=== PATIENT | female | born 1940 | race Two or more races ===

== ENCOUNTER 2017-03-11 09:06 | Day surgery (SDC) | payer MEDICARE, MEDICAID ==
[2017-03-11] VITALS (7 sets, daily range): BP systolic 121–143; BP diastolic 60–71
[~2017-03-11] VITALS: Ht 167.6 cm; Wt 63.5 kg
[~2017-03-11 09:06] MED LIST: ALBUTEROL SULF8.5 GM INH; AMBIEN10 MG PO; ATENOLOL50 MG PO; AZITHROMYCIN250 MG ORAL; CRESTOR10 M1 GT; GABAPENTIN300 MG PO; PAROXETINE HCL10 MG PO; PREVACID30 MG PO; VIT D2 PO
--- NOTE | 2017-03-11 09:13 | Anethesia Preoperative Eval ---
Anesthesia Pre-op PMH/ROS General Date of Evaluation: Mar 11, 2017 Time of Evaluation: 11:07 Anesthesiologist: John ASA Score: ASA 2 Mallampati Score Class I : Soft palate, uvula, fauces, pillars visible Class II: Soft palate, uvula, fauces visible Class III: Soft palate, base of uvula visible Class IV: Only hard plate visible Mallampati Classification: Class II Surgeon: Skyler Diagnosis: history of colon ca Surgical Procedure: colonoscopy Anesthesia History: none Family History: no anesthesia problems Allergies: Coded Allergies: No Known Allergies (Unverified , 01/19/12) Medications: see eMAR Past Medical History Cardiovascular: Reports: HTN, CAD Pulmonary: Reports: other - bronchitis Gastrointestinal/Genitourinary: Reports: other - colorectal cancer- colon sx Neurologic/Psychiatric: Reports: depression/anxiety HEENT: Denies: cataract (L), cataract (R), glaucoma, [place]AND (L), [place]AND (R), other Musculoskeletal/Integumentary: Reports: OA PSxH Narrative: colon sx due to colorectal CA - 2008 Anesthesia Pre-op Phys. Exam Physician Exam Constitutional: NAD Neurologic: CN 2-12 intact Cardiovascular: RRR Respiratory: CTA Gastrointestinal: S/NT/ND Airway Exam Mallampati Score: Class II MO: full ROM: full Teeth: missing Dentures: upper, lower Anesthesia Pre-op A/P Labs chart reviewed Studies Pre-op Studies: EKG - NSR 64 BPM Risk Assessment & Plan Assessment: A&Ox3 Plan: MAC Status Change Before Surgery: No Pre-Antibiotics Given Within 1 Hr of Incision: No - none per surgeon Itzel Lopez CRNA Mar 11, 2017 09:13
--- NOTE | 2017-03-11 09:26 | Pre-Procedure Note/Attestation ---
Pre-Procedure Note/Attestation Complete Prior to Procedure Planned Procedure: not applicable Procedure Narrative: colonoscopy Indications for Procedure Pre-Operative Diagnosis: h/o colon cancer Attestation I attest that I discussed the nature of the procedure; its benefits; risks and complications; and alternatives (and the risks and benefits of such alternatives ), prior to the procedure, with the patient (or the patient's legal agency service representative). I attest that, if there was a reasonable possibility of needing a blood transfusion, the patient (or the patient's legal agency service representative) was given the [facility] standardized written summary, pursuant to the [place] Blood Safety Act ([place] Health and Safety Code # 1645, as amended). I attest that I re-evaluated the patient just prior to the surgery and that there has been no change in the patient's H&P, except as documented below: GENI CRAIG Mar 11, 2017 09:26
--- NOTE | 2017-03-11 09:27 | Short Stay Surgery H&P ---
History of Present Illness History of Present Illness Chief Complaint h/o colon cancer HPI Kallie Turner is a 76 year old female who was admitted on for Hx Of Colon Cancer Patient History Allergies: Coded Allergies: No Known Allergies (Unverified , 01/19/12) PAST MEDICAL HISTORY: Past Surgeries: Social History: Medication History Scheduled Atenolol* (Tenormin*), 100 MG PO DAILY, (Reported) Azithromycin* (Zithromax*), 250 MG ORAL DAILY Gabapentin* (Gabapentin*), 300 MG PO BID, (Reported) Lansoprazole* (Prevacid*), 30 MG PO DAILY, (Reported) Rosuvastatin Calcium (Crestor), 10 MG GT DAILY, (Reported) Zolpidem Tartrate* (Ambien*), 10 MG PO HS, (Reported) [Vit D2], 1.25 MG PO QWEEK, (Reported) Scheduled PRN Albuterol Sulfate* (Albuterol Sulfate Mdi*), 2 PUFF INH Q4H PRN for For Cough Review of Systems Cardiovascular: Reports: no symptoms Respiratory: Reports: no symptoms Skeletal: Reports: no symptoms Gastrointestinal: Reports: no symptoms Genitourinary: Reports: no symptoms Neurologic: Reports: no symptoms Endocrine: Reports: no symptoms Hematologic: Reports: no symptoms Physical Exam Skin: normal HENT: normal Heart: normal Lungs: normal Abdomen: normal Extremities: normal Genitourinary: normal Plan Plan of Care colonoscopy Final Diagnosis: Attestation Are the patient's medical conditions optimized for surgery? Attestation Response: yes GENI CRAIG Mar 11, 2017 09:27
[2017-03-11] MEDS ORDERED: Lidocaine 1% MPF 10mg/ml 5ml ONE (11:00)
[2017-03-11] MEDS ORDERED: Midazolam 2mg/2ml Inj ONE (11:00)
[2017-03-11] MEDS ORDERED: Propofol 200mg/20ml IV ONE (11:00)
--- NOTE | 2017-03-11 11:25 | Endoscopy Procedure Note ---
Endoscopy Procedure Note Indication for Procedure: h/o colon cancer Procedures Performed: colonoscopy Operative Findings/Diagnosis: hemorrhoids Specimen: none Pt Tolerated Procedure Well: Yes Estimated Blood Loss: none Anesthesiologist: latasha Anesthesia: MAC Implant(s) used?: No 50 yrs or older w/o bx or poly: Yes 10yrs. F/U not recommended: Yes If not recommended, why?: Above average risk 10 yrs. F/U needed: Yes 18 years or older w/prev. colo: Yes <3yrs. since last colonoscopy: No GENI CRAIG Mar 11, 2017 11:24
--- NOTE | 2017-03-11 11:26 | Immediate Post-Op Evaluation ---
Immediate Post-Op Evalulation Immediate Post-Op Evalulation Procedure: colonoscopy Date of Evaluation: Mar 11, 2017 Time of Evaluation: 11:33 IV Fluids: NSS 500 ml Blood Products: 0 Estimated Blood Loss: 0 Urinary Output: 0 Blood Pressure Systolic: 127 Blood Pressure Diastolic: 67 Pulse Rate: 61 Respiratory Rate: 18 O2 Sat by Pulse Oximetry: 100 Temperature (Fahrenheit): 98 Pain Score (1-10): 0 Nausea: No Vomiting: No Complications none Patient Status: awake, reacts, patent Hydration Status: adequate Given Within 1 Hr of Incision: Itzel Diallo CRNA Mar 11, 2017 11:26
--- NOTE | 2017-03-11 11:53 | 48 Hour Post Anesthesia Eval ---
Post Anesthesia Evaluation Procedure: colonoscopy Date of Evaluation: Mar 11, 2017 Time of Evaluation: 11:51 Blood Pressure Systolic: 130 0: 70 Pulse Rate: 66 Respiratory Rate: 16 Temperature (Fahrenheit): 97.8 O2 Sat by Pulse Oximetry: 96 Airway: patent Nausea: No Vomiting: No Pain Intensity: 0 Hydration Status: adequate Mental Status/LOC: patient returned to baseline Post-Anesthesia Complications: none Follow-up care needed: patient intructions given Itzel Lopez CRNA Mar 11, 2017 11:53
--- NOTE | 2017-03-13 12:54 | Procedure Note ---
DATE OF PROCEDURE: 03/11/2017 SURGEON: Usama Holland M.D. PROCEDURE: Colonoscopy. ANESTHESIA: Per John ALVARADO. INSTRUMENT: Olympus adult flexible colonoscope. INDICATION: History of colon cancer. Last colonoscopy 3 to 4 years ago. REASON FOR PROCEDURE: The procedure, risks, benefits, and possible consequences, including hemorrhage, aspiration, perforation and infection, and alternative treatments, were explained to the patient/legal guardian by Dr. Usama Holland and the patient/legal guardian understood and accepted these risks. DESCRIPTION OF PROCEDURE: After informed consent was obtained and the patient was adequately sedated, first rectal exam was performed, which was positive for internal hemorrhoids. Then, the scope was advanced from the rectum into the cecum and then subsequently into the terminal ileum. Quality of prep was good. There was some solid stool throughout that we washed and clean out as best as we could. The patient had normal colonoscopy examination without any obvious polyp, mass, or any other pathology seen. Anastomosis seems to be few centimeters above from the rectum. Under retroflexion of rectum, the patient had evidence of few medium-sized nonbleeding internal hemorrhoids. SUMMARY OF FINDINGS: Normal colonoscopy examination except for internal and external hemorrhoids. RECOMMENDATIONS: Repeat colonoscopy in 5 years. Usama Holland M.D. DR: MICA JOB#: [id number] CC:
--- NOTE | 2017-03-15 17:02 | Cardiology Report ---
APPROVED REPORT EKG Measurement Heart [id number] Normal sinus rhythm Normal ECG
== END 2017-03-11 12:40 | disposition home or self-care (01) ==
LOC: GAS 09:06
DX: K64.8 Other hemorrhoids (principal); K64.4 Residual hemorrhoidal skin tags; Z85.038 Personal history of other malignant neoplasm of large intestine; I10 Essential (primary) hypertension; I25.10 Atherosclerotic heart disease of native coronary artery without angina pectoris; F32.9 Major depressive disorder, single episode, unspecified; F41.9 Anxiety disorder, unspecified; M19.90 Unspecified osteoarthritis, unspecified site
CPT/HCPCS: 45378; 93005; J2250; J2704; 94003; 94150

== ENCOUNTER 2019-03-17 14:16 | Outpatient (RCR) | payer MEDICARE, MEDICAID ==
[~2019-03-17 14:16] MED LIST changes: +ONDANSETRON ODT4 MG BC
== END 2019-04-09 | disposition home or self-care (01) ==
LOC: WCC 14:16
DX: E11.621 Type 2 diabetes mellitus with foot ulcer (principal); L97.524 Non-pressure chronic ulcer of other part of left foot with necrosis of bone; I11.9 Hypertensive heart disease without heart failure; E78.00 Pure hypercholesterolemia, unspecified; Z79.84 Long term (current) use of oral hypoglycemic drugs; Z79.82 Long term (current) use of aspirin
CPT/HCPCS: 82962; G0277; G0463

== ENCOUNTER 2019-03-17 15:28 | Outpatient (CLI) | payer MEDICARE, MEDICAID ==
[2019-03-17 16:26] LABS: ANION GAP 11 mmol/L (5-15); BLOOD UREA NITROGEN 31 mg/dL (7-18); CALCIUM 10.2 MG/DL (8.5-10.1); CARBON DIOXIDE 25 MMOL/L (21-32); CHLORIDE 101 MMOL/L (98-107); CREATININE 1.3 MG/DL (0.55-1.30); POTASSIUM 4.7 MMOL/L (3.5-5.1); SODIUM 137 MMOL/L (136-145)
== END 2019-03-17 17:28 | disposition home or self-care (01) ==
LOC: LAB 15:28
DX: E16.2 Hypoglycemia, unspecified (principal)
CPT/HCPCS: 80048; 83036

== ENCOUNTER 2019-04-11 10:43 | Outpatient (RCR) | payer MEDICARE, MEDICAID | END 2019-05-10 | disposition home or self-care (01) | LOC: WCC 10:43 | DX: E11.621 Type 2 diabetes mellitus with foot ulcer (principal); L97.524 Non-pressure chronic ulcer of other part of left foot with necrosis of bone; I11.9 Hypertensive heart disease without heart failure; E78.00 Pure hypercholesterolemia, unspecified; Z85.038 Personal history of other malignant neoplasm of large intestine | CPT/HCPCS: 82962; G0277; G0463 ==

== ENCOUNTER 2019-05-11 09:02 | Outpatient (RCR) | payer MEDICARE, MEDICAID | END 2019-06-09 | disposition home or self-care (01) | LOC: WCC 09:02 | DX: E11.621 Type 2 diabetes mellitus with foot ulcer (principal); L97.524 Non-pressure chronic ulcer of other part of left foot with necrosis of bone | CPT/HCPCS: G0277 ×2 ==

== ENCOUNTER 2019-06-29 11:27 | Outpatient (RCR) | payer MEDICARE, MEDICAID | END 2019-07-10 | disposition home or self-care (01) | LOC: WCC 11:27 | DX: T86.828 Other complications of skin graft (allograft) (autograft) (principal); E11.621 Type 2 diabetes mellitus with foot ulcer; Z89.412 Acquired absence of left great toe; Z89.422 Acquired absence of other left toe(s); I11.9 Hypertensive heart disease without heart failure; E78.00 Pure hypercholesterolemia, unspecified; T81.30XA Disruption of wound, unspecified, initial encounter; X58.XXXA Exposure to other specified factors, initial encounter; Y92.9 Unspecified place or not applicable | CPT/HCPCS: 82962; G0277; G0463 ==

== ENCOUNTER 2019-07-11 08:04 | Outpatient (RCR) | payer MEDICARE, MEDICAID | END 2019-08-09 | disposition home or self-care (01) | LOC: WCC 08:04 | DX: T86.828 Other complications of skin graft (allograft) (autograft) (principal); E11.621 Type 2 diabetes mellitus with foot ulcer; E78.00 Pure hypercholesterolemia, unspecified; I11.9 Hypertensive heart disease without heart failure; I25.10 Atherosclerotic heart disease of native coronary artery without angina pectoris; I73.9 Peripheral vascular disease, unspecified; Z89.412 Acquired absence of left great toe; Z79.84 Long term (current) use of oral hypoglycemic drugs; Z79.899 Other long term (current) drug therapy | CPT/HCPCS: 82962; G0277 ==

== ENCOUNTER 2019-08-10 07:44 | Outpatient (RCR) | payer SELFPAY | END 2019-09-09 | disposition home or self-care (01) | LOC: WCC 07:44 | DX: T86.828 Other complications of skin graft (allograft) (autograft) (principal); E11.621 Type 2 diabetes mellitus with foot ulcer; E78.00 Pure hypercholesterolemia, unspecified; I10 Essential (primary) hypertension; I11.9 Hypertensive heart disease without heart failure; Z89.422 Acquired absence of other left toe(s); Z79.899 Other long term (current) drug therapy | CPT/HCPCS: G0277 ×8 ==

== ENCOUNTER 2019-12-30 16:22 | Inpatient (IN) | payer MEDICARE, MEDICAID ==
[~2019-12-30] VITALS: Ht 157.5 cm; Wt 56.7 kg
[2019-12-30] MEDS ORDERED: ceFAZolin 2gm/50ml Premix 50 ML IV SCH (16:45)
[2019-12-30 16:50] VITALS: BP 104/65
--- NOTE | 2019-12-30 17:00 | NUR ---
ED Nurse Note: Pt ambulated to ED accompanied by son d/t wound infection on the amputated L foot. Pt is AOx4, calm and cooperative to care. Pt's VSS, on RA, afebrile on triage. Per son, since the pt got her toes amputated, pt's foot has already been infected going on [address] don bed and gown; son at bedside.
[2019-12-30 17:52] LABS: BASOPHILS % (AUTO) 1.1 % (0.0-2.0); EOSINOPHILS % (AUTO) 2.3 % (0.0-3.0); HEMATOCRIT 34.7 % (37.0-47.0); HEMOGLOBIN 11.4 G/DL (12.0-16.0); MEAN CORPUSCULAR VOLUME 87 FL (80-99); MONOCYTES % (AUTO) 7.9 % (1.0-10.0); NEUTROPHILS % (AUTO) 58.7 % (45.0-75.0); PLATELET COUNT 159 K/UL (150-450); RED BLOOD COUNT 4.01 M/UL (4.20-5.40); RED CELL DISTRIBUTION WIDTH 17.1 % (11.6-14.8); WHITE BLOOD COUNT 7.2 K/UL (4.8-10.8)
--- NOTE | 2019-12-30 18:00 | Diagnostic Imaging Report ---
EXAM: XR Left Foot Complete, 3 or More Views CLINICAL HISTORY: PAIN TECHNIQUE: Frontal, lateral and oblique views of the left foot. COMPARISON: No relevant prior studies available. FINDINGS: Bones/joints: Distal first metatarsal amputation at the level of the head. Second digit amputation. Plantar and Achilles calcaneal enthesophytes. No acute fracture. No dislocation. Soft tissues: Extensive circumferential midfoot and forefoot soft tissue swelling. This could represent cellulitis or edema. No radiopaque foreign body. Other findings: No acute abnormality definitively identified to account for patient presentation. IMPRESSION: 1. Distal first metatarsal amputation at the level of the head. Second digit amputation. 2. No acute abnormality definitively identified to account for patient presentation. 3. Plantar and Achilles calcaneal enthesophytes. 4. Extensive circumferential midfoot and forefoot soft tissue swelling. This could represent cellulitis or edema.
--- NOTE | 2019-12-30 18:01 | Diagnostic Imaging Report ---
EXAM: XR Chest, 1 View CLINICAL HISTORY: PAIN TECHNIQUE: Frontal view of the chest. COMPARISON: 03/26/12 FINDINGS: Lungs: Low lung volumes with bronchovascular crowding. No consolidation, pleural effusion, or pneumothorax. Pleural space: See above. Heart: Unremarkable. No cardiomegaly. Mediastinum: Unremarkable. Bones/joints: No acute abnormality IMPRESSION: 1. Low lung volumes with bronchovascular crowding. 2. Otherwise no acute cardiopulmonary disease. 3. If there is continued concern, recommend frontal and lateral chest radiographs or CT.
[2019-12-30 18:05] LABS: BILIRUBIN, URINE NEGATIVE (NEGATIVE); COLOR,URINE PALE YELLOW; GLUCOSE, URINE (UA) NEGATIVE (NEGATIVE); KETONES,URINE NEGATIVE (NEGATIVE); LEUKOCYTE ESTERASE ,URINE 2+ (NEGATIVE); NITRITE,URINE NEGATIVE (NEGATIVE); PH,URINE 5 (4.5-8.0); PROTEIN,URINE NEGATIVE (NEGATIVE); UROBILINOGEN,URINE NORMAL MG/DL (0.0-1.0)
[2019-12-30 18:22] LABS: APPEARANCE,URINE SLIGHTLY CLOUDY
[2019-12-30 18:32] LABS: ALANINE AMINOTRANSFERASE 16 U/L (12-78); ALBUMIN 3.6 G/DL (3.4-5.0); ALKALINE PHOSPHATASE 44 U/L (46-116); ANION GAP 8 mmol/L (5-15); ASPARTATE AMINO TRANSFERASE 24 U/L (15-37); BILIRUBIN,TOTAL 0.3 MG/DL (0.2-1.0); BLOOD UREA NITROGEN 34 mg/dL (7-18); CALCIUM 9.5 MG/DL (8.5-10.1); CARBON DIOXIDE 28 MMOL/L (21-32); CHLORIDE 103 MMOL/L (98-107); CREATINE KINASE 45 U/L (26-308); SODIUM 139 MMOL/L (136-145)
[2019-12-30 18:38] LABS: CREATININE 1.3 MG/DL (0.55-1.30)
--- NOTE | 2019-12-30 19:08 | NUR ---
ED Nurse Note: Hand off given to Kash Epstein RN
--- NOTE | 2019-12-30 19:43 | NUR ---
ED Nurse Note: gave report to Al RN
--- NOTE | 2019-12-30 19:45 | NUR ---
TRANSFER TO FLOOR: Patient transferred to [facility] via gurney as ordered, per dr. Pineda. Report given to Raciel OSBORN. Belongings sent with patient
--- NOTE | 2019-12-30 19:50 | Emergency Room Report ---
History of Present Illness General Chief Complaint: General Complaint Present Illness HPI 79-year-old female with history of diabetes currently on Metformin and status post amputation of left big toe x6 months brought in by son due to worsening pain in surgical site. Patient was told by primary doctor to get cefazolin IV however has not started yet as in-home nurse needs to start giving those next week. Also patient is currently on Keflex p.o. Denies any new injury, is neurovascularly intact, minimal pus is noted at the surgical site. Patient is afebrile. Denies chest pain, shortness of breath, headache and dizziness. Has not taken any other medications for symptom relief. Appears to be stable. (Steve Delacruz) Allergies: Coded Allergies: No Known Allergies (Unverified , 01/19/12) COVID-19 Screening Contact w/high risk pt: No Experienced COVID-19 symptoms?: No COVID-19 Testing performed MARKET ANALYST: No (Steve Delacruz) Patient History Past Medical History: see triage record Past Surgical History: none Pertinent Family History: none Now: No Immunizations: UTD Reviewed Nursing Documentation: PMH: Agreed; PSxH: Agreed (Steve Lopez) Nursing Documentation-PMH Hx Cardiac Problems: Yes Hx Hypertension: Yes Hx Diabetes: Yes Hx Cancer: Yes Hx Gastrointestinal Problems: Yes - COLON CA Hx Neurological Problems: No (Steve Delacruz) Review of Systems All Other Systems: negative except mentioned in HPI (Steve Delacruz) Physical Exam Vital Signs Date Time Temp Pulse Resp B/P (MAP) Pulse Ox O2 Delivery O2 Flow Rate FiO2 12/30/19 16:30 98.1 85 16 104/65 (78) 98 Room Air Sp02 EP Interpretation: reviewed, normal General Appearance: no apparent distress, alert, GCS 15, non-toxic Head: normocephalic, atraumatic Eyes: bilateral eye normal inspection, bilateral eye PERRL ENT: hearing grossly normal, normal pharynx, no angioedema, normal voice Neck: full range of motion, supple/symm/no masses Respiratory: chest non-tender, lungs clear, normal breath sounds, speaking full sentences Cardiovascular #1: regular rate, rhythm, no edema Cardiovascular #2: 2+ carotid (R), 2+ carotid (L), 2+ radial (R), 2+ radial (L), 2+ dorsalis pedis (R), 2+ dorsalis pedis (L) Gastrointestinal: normal bowel sounds, non tender, soft, non-distended, no guarding, no rebound Genitourinary: no CVA tenderness Musculoskeletal: back normal, other - Status post amputation left big toe with minimal pus drainage Neurologic: alert, motor strength/tone normal, oriented x3, sensory intact, responsive, speech normal Psychiatric: judgement/insight normal, memory normal, mood/affect normal, no suicidal/homicidal ideation Lymphatic: no adenopathy (Steve Delacruz) Medical Decision Making PA Attestation ALL Diagnosis and treatment plan reviewed and discussed with my supervising physician Dr. Gallego (Steve Delacruz) Diagnostic Impression: Primary Impression: Diabetic foot infection Additional Impression: Infection of amputation site of lower extremity ER Course 79-year-old female with history of diabetes currently on Metformin and status post amputation of left big toe x6 months brought in by son due to worsening pain in surgical site. Patient was told by primary doctor to get cefazolin IV however has not started yet as in-home nurse needs to start giving those next week. Also patient is currently on Keflex p.o. Denies any new injury, is neurovascularly intact, minimal pus is noted at the surgical site. Patient is afebrile. Denies chest pain, shortness of breath, headache and dizziness. Has not taken any other medications for symptom relief. Appears to be stable. Ddx considered but are not limited to : Cellulitis, diabetic foot, superficial infection, abscess Vital signs: are WNL, pt. is afebrile H&PE are most consistent with: Diabetic foot ulcer ORDERS: ER sepsis order set ED INTERVENTIONS: Cefazolin Patient was admitted with diagnosis of infected diabetic foot to Dr. Pineda under supervision of : Lashonda pt stable at time of admission (Steve Delacruz) ER Course I personally examined the above patient and agree with the above assessment and plan. Patient admitted in stable condition. (Anthony Gallego M.D.) EKG Diagnostic Results Rate: normal Rhythm: NSR ST Segments: no acute changes Other Impression No acute ST changes ASA given to the pt in ED: No (Steve Delacruz) Chest X-Ray Diagnostic Results Chest X-Ray Diagnostic Results : Chest X-Ray Ordered: Yes # of Views/Limited/Complete: 1 View Indication: Other EP Interpretation: Yes PA Xray: Interpretation reviewed, by supervising MD, and agrees with findings. Interpretation: no consolidation, no effusion, no pneumothorax Impression: No acute disease Electronically Signed by: Steve Lr PA-C (Steve Delacruz) Other X-Ray Diagnostic Results Other X-Ray Diagnostic Results : X-Ray ordered: left foot # of Views/Limited Vs Complete: 3 View Indication: Pain EP Interpretation: Yes PA Xray: Interpretation reviewed, by supervising MD, and agrees with findings. Interpretation: no dislocation, no soft tissue swelling, no fractures, other - No osteomyelitis Impression: No acute disease Electronically Signed by: Steve Lr PA-C (Steve Delacruz) Last Vital Signs Date Time Temp Pulse Resp B/P (MAP) Pulse Ox O2 Delivery O2 Flow Rate FiO2 12/30/19 16:50 98.1 16 104/65 98 Room Air 12/30/19 16:50 85 (Steve Delacruz) Disposition: ADMITTED INPATIENT Condition: Serious Referrals: GENI PRICE (PCP) Steve Delacruz Dec 30, 2019 19:50 Anthony Gallego M.D. Dec 30, 2019 19:51
[2019-12-30] MEDS ORDERED: Vancomycin 1 GM in NS 275 ML IVPB ONE (22:00)
[2019-12-30] MEDS: Acetaminophen 500mg (ES) tab ORAL PRN (23:21)
[2019-12-31] MEDS ORDERED: Piperacillin/Tazobactam 3.375 GM in NS 110 ML IVPB SCH ×2
[2019-12-31 00:40] VITALS: BP 116/59
[2019-12-31 04:00] VITALS: BP 105/55
[2019-12-31] MEDS: Acetaminophen 500mg (ES) tab ORAL PRN ×2 (05:28→21:08)
--- NOTE | 2019-12-31 05:37 | NUR ---
NURSE NOTES: Report received from Kash Epstein RN. Pt. was brought via [employer] @ [facility]. Pt. was transferred to bed and made comfortable. Pt. is awake, alert and oriented x3. Able to make needs known. Denies any pain at this time. Breathing even and unlabored. Body assessment done. With skin intact aside from left foot post amputation of big and second toe x 7 months ago per pt. Oriented with hospital policies and room equipments. Bed placed in lowest position and placed on alarm and locked. Called and verified admission orders with Dr. Pineda, orders taken and carried out. Called family, spoke to piyush Copeland and verified all pt.'s med list. Complained of left foot mild pain, prn meds given and verbalized relief. First dose of Vancomycin, without a/r noted. Slept @ short intervals. Kept warm and comfortable @! all times. Wound treatment and dressing of left foot wound done, kept clean and dry at all times. Able to ambulate to void freely. Will continue with plan of care.
[2019-12-31] MEDS: NovoLOG Insulin Flexpen SUBQ SCH ×4 (06:30→20:32)
[2019-12-31 07:29] LABS: HEMATOCRIT 34.2 % (37.0-47.0); HEMOGLOBIN 10.8 G/DL (12.0-16.0); LYMPHOCYTES % (AUTO) 24.2 % (20.0-45.0); MEAN CORPUSCULAR VOLUME 89 FL (80-99); MONOCYTES % (AUTO) 10.3 % (1.0-10.0); NEUTROPHILS % (AUTO) 62.5 % (45.0-75.0); PLATELET COUNT 124 K/UL (150-450); RED BLOOD COUNT 3.85 M/UL (4.20-5.40); RED CELL DISTRIBUTION WIDTH 16.4 % (11.6-14.8); WHITE BLOOD COUNT 4.1 K/UL (4.8-10.8)
[2019-12-31 08:00] VITALS: BP 109/58
--- NOTE | 2019-12-31 08:00 | NUR ---
NURSE NOTES: Patient alert x4; on room air, no sing of distress and shortness of breath; no sing of chest pain; IV Right For-Arm flushes well; side rails up x2, breaks engaged, bed at lowest position, call light within reach; will keep monitoring.
[2019-12-31 08:02] LABS: CALCIUM 8.9 MG/DL (8.5-10.1); PHOSPHORUS 4.4 MG/DL (2.5-4.9); POTASSIUM 3.7 MMOL/L (3.5-5.1)
[2019-12-31] MEDS: Heparin 5000 units/ml inj SUBQ SCH ×2 (09:00→20:16)
[2019-12-31] MEDS ORDERED: Vitamin D 50,000 units cap ORAL SCH (09:00)
[2019-12-31] MEDS: metFORMIN 500mg tab ORAL SCH ×2 (09:06→17:25)
[2019-12-31] MEDS: Lyrica 50mg cap ORAL SCH ×3 (09:07→17:25)
[2019-12-31] MEDS: PARoxetine HCL 10mg tab ORAL SCH (09:07)
[2019-12-31] MEDS: Piperacillin/Tazobactam 3.375 GM in NS 110 ML IVPB SCH ×2 (09:08→17:26)
[2019-12-31 12:00] VITALS: BP 103/52
--- NOTE | 2019-12-31 13:57 | NUR ---
Imaging Specialist: Patient's blood sugar was 61and Dextrose 50% given; will rechecked blood sugar, 234; will keep monitoring.
--- NOTE | 2019-12-31 14:03 | Infectious Diseases Prog Note ---
Assessment/Plan Assessment/Plan Full consult to follow: A) 1) left foot wound infection at amputation site 2) dm 3) htn P) 1) vancomycin and zosyn 2) f/u on culture left foot 3) surgery evaluation 4) monitor labs 5) thank you Subjective Allergies: Coded Allergies: No Known Allergies (Unverified , 01/19/12) Objective Last 24 Hour Vital Signs Date Time Temp Pulse Resp B/P (MAP) Pulse Ox O2 Delivery O2 Flow Rate FiO2 12/31/19 12:00 97.5 78 18 103/52 (69) 96 12/31/19 09:00 Room Air 12/31/19 08:00 97.5 84 18 109/58 (75) 97 12/31/19 05:58 97.5 12/31/19 04:00 98.1 75 18 105/55 (72) 94 12/31/19 00:40 97.5 82 17 116/59 (78) 97 12/30/19 23:51 97.5 12/30/19 23:28 Room Air 12/30/19 19:45 97.5 72 16 118/71 98 Room Air 12/30/19 16:50 98.1 16 104/65 98 Room Air 12/30/19 16:50 85 16 Room Air 12/30/19 16:30 98.1 85 16 104/65 (78) 98 Room Air Height (Feet): 5 Height (Inches): 2.00 Weight (Pounds): 125 Laboratory Tests Test 12/30/19 17:15 12/30/19 17:25 12/31/19 06:35 12/31/19 11:37 White Blood Count 7.2 K/UL (4.8-10.8) 4.1 K/UL (4.8-10.8) L Red Blood Count 4.01 M/UL (4.20-5.40) L 3.85 M/UL (4.20-5.40) L Hemoglobin 11.4 G/DL (12.0-16.0) L 10.8 G/DL (12.0-16.0) L Hematocrit 34.7 % (37.0-47.0) L 34.2 % (37.0-47.0) L Mean Corpuscular Volume 87 FL (80-99) 89 FL (80-99) Mean Corpuscular Hemoglobin 28.4 PG (27.0-31.0) 28.2 PG (27.0-31.0) Mean Corpuscular Hemoglobin Concent 32.7 G/DL (32.0-36.0) 31.7 G/DL (32.0-36.0) L Red Cell Distribution Width 17.1 % (11.6-14.8) H 16.4 % (11.6-14.8) H Platelet Count 159 K/UL (150-450) 124 K/UL (150-450) L Mean Platelet Volume 8.3 FL (6.5-10.1) 7.5 FL (6.5-10.1) Neutrophils (%) (Auto) 58.7 % (45.0-75.0) 62.5 % (45.0-75.0) Lymphocytes (%) (Auto) 30.0 % (20.0-45.0) 24.2 % (20.0-45.0) Monocytes (%) (Auto) 7.9 % (1.0-10.0) 10.3 % (1.0-10.0) H Eosinophils (%) (Auto) 2.3 % (0.0-3.0) 2.0 % (0.0-3.0) Basophils (%) (Auto) 1.1 % (0.0-2.0) 1.0 % (0.0-2.0) Erythrocyte Sedimentation Rate 40 MM/HR (0-30) H Prothrombin Time 11.2 SEC (9.30-11.50) Prothromb Time International Ratio 1.0 (0.9-1.1) Activated Partial Thromboplast Time 25 SEC (23-33) Sodium Level 139 MMOL/L (136-145) 140 MMOL/L (136-145) Potassium Level 4.0 MMOL/L (3.5-5.1) 3.7 MMOL/L (3.5-5.1) Chloride Level 103 MMOL/L (98-107) 107 MMOL/L (98-107) Carbon Dioxide Level 28 MMOL/L (21-32) 25 MMOL/L (21-32) Anion Gap 8 mmol/L (5-15) 8 mmol/L (5-15) Blood Urea Nitrogen 34 mg/dL (7-18) H 26 mg/dL (7-18) H Creatinine 1.3 MG/DL (0.55-1.30) 1.0 MG/DL (0.55-1.30) Estimat Glomerular Filtration Rate 39.7 mL/min (>60) 53.8 mL/min (>60) Glucose Level 92 MG/DL (74-106) 81 MG/DL (74-106) Lactic Acid Level 1.70 mmol/L (0.4-2.0) Calcium Level 9.5 MG/DL (8.5-10.1) 8.9 MG/DL (8.5-10.1) Total Bilirubin 0.3 MG/DL (0.2-1.0) Aspartate Amino Transf (AST/SGOT) 24 U/L (15-37) Alanine Aminotransferase (ALT/SGPT) 16 U/L (12-78) Alkaline Phosphatase 44 U/L (46-116) L Total Creatine Kinase 45 U/L (26-308) Troponin I 0.000 ng/mL (0.000-0.056) C-Reactive Protein, Quantitative < 0.4 mg/dL (0.00-0.90) Pro-B-Type Natriuretic Peptide 126 pg/mL (0-125) H Total Protein 7.1 G/DL (6.4-8.2) Albumin 3.6 G/DL (3.4-5.0) Globulin 3.5 g/dL Albumin/Globulin Ratio 1.0 (1.0-2.7) Urine Color Pale yellow Urine Appearance Slightly cloudy Urine pH 5 (4.5-8.0) Urine Specific [place] 1.025 (1.005-1.035) Urine Protein Negative (NEGATIVE) Urine Glucose (UA) Negative (NEGATIVE) Urine Ketones Negative (NEGATIVE) Urine Blood Negative (NEGATIVE) Urine Nitrite Negative (NEGATIVE) Urine Bilirubin Negative (NEGATIVE) Urine Urobilinogen Normal MG/DL (0.0-1.0) Urine Leukocyte Esterase 2+ (NEGATIVE) H Urine RBC 0-2 /HPF (0 - 2) Urine WBC 2-4 /HPF (0 - 2) Urine Squamous Epithelial Cells Few /LPF (NONE/OCC) Urine Bacteria Few /HPF (NONE) Hemoglobin A1c 5.3 % (4.3-6.0) Phosphorus Level 4.4 MG/DL (2.5-4.9) Magnesium Level 1.9 MG/DL (1.8-2.4) POC Whole Blood Glucose 61 MG/DL (74-106) L Test 12/31/19 12:33 POC Whole Blood Glucose 59 MG/DL (74-106) L Current Medications Medications (Trade) Dose Ordered Sig/Dav Route PRN Reason Start Time Stop Time Status Last Admin Dose Admin Acetaminophen (Tylenol) 650 mg Q6H PRN ORAL Mild Pain (Pain Scale 1-3) 12/30/19 22:45 01/29/20 22:44 12/31/19 05:28 Atorvastatin Calcium (Lipitor) 10 mg BEDTIME ORAL 12/31/19 21:00 03/30/20 20:59 Dextrose (Dextrose 50%) 25 ml Q30M PRN IV Hypoglycemia 12/30/19 22:45 03/29/20 22:44 Dextrose (Dextrose 50%) 50 ml Q30M PRN IV Hypoglycemia 12/30/19 22:45 03/29/20 22:44 12/31/19 12:58 Ergocalciferol (Drisdol) 50,000 intlu ONCE A WEEK ORAL 12/31/19 09:00 01/30/20 08:59 12/31/19 09:19 Folic Acid (Folate) 1 mg DAILY ORAL 12/31/19 09:00 01/30/20 08:59 12/31/19 09:07 Heparin Sodium (Porcine) (Heparin 5000 units/ml) 5,000 units EVERY 12 HOURS SUBQ 12/31/19 09:00 02/14/20 08:59 Insulin Aspart (NovoLOG) BEFORE MEALS AND HS SUBQ 12/31/19 06:30 03/30/20 06:29 Metformin HCl (Glucophage) 500 mg BID ORAL 12/31/19 09:00 01/30/20 08:59 12/31/19 09:06 Paroxetine HCl (Paxil) 10 mg DAILY ORAL 12/31/19 09:00 01/30/20 08:59 12/31/19 09:07 Piperacillin Sod/ Tazobactam Sod 3.375 gm/Sodium Chloride 110 ml @ 27.5 mls/hr Q8H IVPB 12/31/19 10:00 01/07/20 09:59 12/31/19 09:08 Pregabalin (Lyrica) 100 mg THREE TIMES A DAY ORAL 12/31/19 09:00 01/30/20 08:59 12/31/19 13:50 Vancomycin HCl (Vanco pharmacy to dose) 1 ea DAILY PRN MISC Per rx protocol 12/30/19 22:00 01/29/20 21:59 Vancomycin HCl 1 gm/Dextrose 275 ml @ 183.708 mls/hr Q24H IVPB 12/31/19 22:00 01/05/20 21:59 Debbie Abel MD Dec 31, 2019 14:03
[2019-12-31 16:00] VITALS: BP 120/50
--- NOTE | 2019-12-31 18:24 | History & Physical ---
History of Present Illness General Reason for Hospitalization: General Complaint Present Illness HPI 79-year-old female with history of diabetes currently on Metformin and status post amputation of left big toe x6 months brought in by son due to worsening pain in surgical site. Patient was told by primary doctor to get cefazolin IV however has not started yet as in-home nurse needs to start giving those next week. Also patient is currently on Keflex p.o. Denies any new injury, is neurovascularly intact, minimal pus is noted at the surgical site. Patient is afebrile. Denies chest pain, shortness of breath, headache and dizziness. Has not taken any other medications for symptom relief. Appears to be stable. Allergies: Coded Allergies: No Known Allergies (Unverified , 01/19/12) COVID-19 Screening Contact w/high risk pt: No Experienced COVID-19 symptoms?: No Medication History Scheduled Atenolol* (Tenormin*), 100 MG PO DAILY, (Reported) Rosuvastatin Calcium (Crestor), 10 MG GT DAILY, (Reported) Zolpidem Tartrate* (Ambien*), 10 MG PO HS, (Reported) [Vit D2], 1.25 MG PO QWEEK, (Reported) Scheduled PRN Albuterol Sulfate* (Albuterol Sulfate Mdi*), 2 PUFF INH Q4H PRN for For Cough Ondansetron Odt* (Zofran Odt*), 4 MG BC EVERY 6 HOURS PRN for Nausea & Vomiting Patient History Healthcare decision maker Resuscitation status Advanced Directive on File Review of Systems Review of Symptoms General ROS: no weight loss or fever Psychological ROS: no depression or mood changes, no memory loss Ophthalmic ROS: no visual changes or eye irritation ENT ROS: no nasal congestion, hearing loss, dizziness Allergy and Immunology ROS: no allergic symptoms or urticaria Hematological and Lymphatic ROS: no swollen glands, unusual bleeding or bruising Endocrine ROS: no polyuria, polydipsia, weight changes, temperature intolerance Respiratory ROS: no cough, shortness of breath, or wheezing Cardiovascular ROS: no chest pain or dyspnea on exertion Gastrointestinal ROS: denies abdominal pain, bright red blood in stool. Musculoskeletal ROS: no myalgias or arthralgias Neurological ROS: no TIA or stroke symptoms Dermatological ROS: no new or changing skin lesions, rashes or pruritis Physical Exam Physical Exam General appearance: alert, cooperative, no distress, appears stated age Head: Normocephalic, without obvious abnormality, atraumatic Eyes: conjunctivae/corneas clear. PERRL, EOM's intact. Fundi benign Throat: Lips, mucosa, and tongue normal. Teeth and gums normal Neck: supple, symmetrical, trachea midline, no adenopathy, thyroid: not enlarged, symmetric, no tenderness/mass/nodules, no carotid bruit and no JVD Lungs: clear to auscultation bilaterally Heart: regular rate and rhythm, S1, S2 normal, no murmur, click, rub or gallop Abdomen: soft, non-tender. Bowel sounds normal. No masses, no organomegaly Extremities: extremities normal, atraumatic, no cyanosis or edema Pulses: 2+ and symmetric Skin: Skin color, texture, turgor normal. No rashes or lesions Neurologic: Grossly normal Last 24 Hour Vital Signs Date Time Temp Pulse Resp B/P (MAP) Pulse Ox O2 Delivery O2 Flow Rate FiO2 12/31/19 16:00 97.8 73 18 120/50 (73) 96 12/31/19 12:00 97.5 78 18 103/52 (69) 96 12/31/19 09:00 Room Air 12/31/19 08:00 97.5 84 18 109/58 (75) 97 12/31/19 05:58 97.5 12/31/19 04:00 98.1 75 18 105/55 (72) 94 12/31/19 00:40 97.5 82 17 116/59 (78) 97 12/30/19 23:51 97.5 12/30/19 23:28 Room Air 12/30/19 19:45 97.5 72 16 118/71 98 Room Air Intake and Output 12/30/19 12/31/19 19:00 07:00 Intake Total 900 ml Balance 900 ml Intake Oral 900 ml # Voids 4 Laboratory Tests Test 12/31/19 06:35 12/31/19 11:37 12/31/19 12:33 White Blood Count 4.1 K/UL (4.8-10.8) L Red Blood Count 3.85 M/UL (4.20-5.40) L Hemoglobin 10.8 G/DL (12.0-16.0) L Hematocrit 34.2 % (37.0-47.0) L Mean Corpuscular Volume 89 FL (80-99) Mean Corpuscular Hemoglobin 28.2 PG (27.0-31.0) Mean Corpuscular Hemoglobin Concent 31.7 G/DL (32.0-36.0) L Red Cell Distribution Width 16.4 % (11.6-14.8) H Platelet Count 124 K/UL (150-450) L Mean Platelet Volume 7.5 FL (6.5-10.1) Neutrophils (%) (Auto) 62.5 % (45.0-75.0) Lymphocytes (%) (Auto) 24.2 % (20.0-45.0) Monocytes (%) (Auto) 10.3 % (1.0-10.0) H Eosinophils (%) (Auto) 2.0 % (0.0-3.0) Basophils (%) (Auto) 1.0 % (0.0-2.0) Sodium Level 140 MMOL/L (136-145) Potassium Level 3.7 MMOL/L (3.5-5.1) Chloride Level 107 MMOL/L (98-107) Carbon Dioxide Level 25 MMOL/L (21-32) Anion Gap 8 mmol/L (5-15) Blood Urea Nitrogen 26 mg/dL (7-18) H Creatinine 1.0 MG/DL (0.55-1.30) Estimat Glomerular Filtration Rate 53.8 mL/min (>60) Glucose Level 81 MG/DL (74-106) Hemoglobin A1c 5.3 % (4.3-6.0) Calcium Level 8.9 MG/DL (8.5-10.1) Phosphorus Level 4.4 MG/DL (2.5-4.9) Magnesium Level 1.9 MG/DL (1.8-2.4) POC Whole Blood Glucose 61 MG/DL (74-106) L 59 MG/DL (74-106) L Height (Feet): 5 Height (Inches): 2.00 Weight (Pounds): 125 Medications Current Medications Medications (Trade) Dose Ordered Sig/Dav Route PRN Reason Start Time Stop Time Status Last Admin Dose Admin Acetaminophen (Tylenol) 650 mg Q6H PRN ORAL Mild Pain (Pain Scale 1-3) 12/30/19 22:45 01/29/20 22:44 12/31/19 05:28 Atorvastatin Calcium (Lipitor) 10 mg BEDTIME ORAL 12/31/19 21:00 03/30/20 20:59 Dextrose (Dextrose 50%) 25 ml Q30M PRN IV Hypoglycemia 12/30/19 22:45 03/29/20 22:44 Dextrose (Dextrose 50%) 50 ml Q30M PRN IV Hypoglycemia 12/30/19 22:45 03/29/20 22:44 12/31/19 12:58 Ergocalciferol (Drisdol) 50,000 intlu ONCE A WEEK ORAL 12/31/19 09:00 01/30/20 08:59 12/31/19 09:19 Folic Acid (Folate) 1 mg DAILY ORAL 12/31/19 09:00 01/30/20 08:59 12/31/19 09:07 Heparin Sodium (Porcine) (Heparin 5000 units/ml) 5,000 units EVERY 12 HOURS SUBQ 12/31/19 09:00 02/14/20 08:59 Insulin Aspart (NovoLOG) BEFORE MEALS AND HS SUBQ 12/31/19 06:30 03/30/20 06:29 Metformin HCl (Glucophage) 500 mg BID ORAL 12/31/19 09:00 01/30/20 08:59 12/31/19 17:25 Paroxetine HCl (Paxil) 10 mg DAILY ORAL 12/31/19 09:00 01/30/20 08:59 12/31/19 09:07 Piperacillin Sod/ Tazobactam Sod 3.375 gm/Sodium Chloride 110 ml @ 27.5 mls/hr Q8H IVPB 12/31/19 10:00 01/07/20 09:59 12/31/19 17:26 Pregabalin (Lyrica) 100 mg THREE TIMES A DAY ORAL 12/31/19 09:00 01/30/20 08:59 12/31/19 17:25 Vancomycin HCl (Vanco pharmacy to dose) 1 ea DAILY PRN MISC Per rx protocol 12/30/19 22:00 01/29/20 21:59 Vancomycin HCl 1 gm/Dextrose 275 ml @ 183.708 mls/hr Q24H IVPB 12/31/19 22:00 01/05/20 21:59 Assessment/Plan Diagnosis [place] [facility]: #Diabetic foot infection #DM #HTN #HLD #Depression - admit inpatient - vanco and zosyn - wound care - ID eval - surgery eval - hold metformin - resume statin - ISS - resume paxil time spent 65 min [facility] Hospital declaration Disposition: Once the patient is stable to leave the hospital, I anticipate the patient will likely be discharged to the following environment:home Estimated discharge date: 01/03 I spent 70 minutes on this patient's case, and 35 minutes was dedicated to counseling and/or care coordination. MIPS (Merit-based Incentive Payment System) Applicable CPT: 16671, 51730 CHECK ALL THAT ARE MET: Measure #5 (CHF): All ages. Prescribe YOVANY/ARB upon discharge for patients with left ventricular systolic dysfunction. If not, the reason is clearly documented in the medical chart. Measure #8 (CHF): All ages. Prescribe a beta dione upon discharge for patients with left ventricular systolic dysfunction. If not, the reason is clearly documented in the medical chart. Measure #47 Advance care plan or surrogate decision maker documented in the medical record. Measure #130 The provider has documented, updated, or reviewed the patients current medication list and has documented it in the patients note. Measure #374 (All): Send report to referring provider. Measure #407(Sepsis due to MSSA bacteremia): Age 18+ Patient treated with a beta-lactam antibiotic (Nafcillin, Oxacillin or Cefazolin) as definitive therapy. MEDICAL COMPLEXITY High complexity medical decision making (need 2/3 categories) Problem - need 4 points Acute/new problem with new plan for workup (4 points, 1 max) Acute/new problem without additional workup (3 points, 1 max) Unstable chronic problem actively being managed (2 point each, 2 max) Stable chronic problem actively being managed (1 point each, 2 max) Self-limited/transient process (constipation, muscle ache, etc) (1 point each, 2 max) Data - need 4 points Reviewed labs/imaging studies (1 points, 2 max) Independent review of imaging (EKG, xrays, etc) (2 points, 2 max) Discussed case with consult/other MD/RN (2 points, 2 max) High Risk - qualify if have one of the following: Severe exacerbation of acute problem, acute mental status change, IV narcotics, monitoring drug levels (vancomycin, INR, tacrolimus etc) Kodi Pineda M.D. Dec 31, 2019 18:24
--- NOTE | 2019-12-31 19:38 | NUR ---
HAND-OFF: Report given to IRENA Hudson.
--- NOTE | 2019-12-31 19:40 | NUR ---
NURSE NOTES: Received report & pt from IRENA Ramos. Pt in bathroom, a&ox4, in room air. No s/s of acute distress & no c/o pain at this time. Left foot dressing C/D/I. IV site intact with atb running as ordered. Plan of care discussed.
[2019-12-31 20:31] VITALS: BP 107/50
[2019-12-31] MEDS: Vancomycin 1gm in D5W 275ml IVPB SCH (21:44)
--- NOTE | 2019-12-31 22:06 | Consultation ---
History of Present Illness General Date patient seen: Dec 31, 2019 Time patient seen: 18:50 Chief Complaint: General Complaint Referring physician: Dr Kodi Pineda Reason for Consultation: medical co management Present Illness HPI 79-year-old female with history of diabetes currently on Metformin and status post amputation of left big toe x6 months brought in by son due to worsening pain in surgical site. Patient was told by primary doctor to get cefazolin IV however has not started yet as in-home nurse needs to start giving those next week. Also patient is currently on Keflex p.o. Denies any new injury, is neurovascularly intact, minimal pus is noted at the surgical site. Patient is afebrile. Denies chest pain, shortness of breath, headache and dizziness. Has not taken any other medications for symptom relief. Allergies: Coded Allergies: No Known Allergies (Unverified , 01/19/12) Medication History Scheduled Atenolol* (Tenormin*), 100 MG PO DAILY, (Reported) Rosuvastatin Calcium (Crestor), 10 MG GT DAILY, (Reported) Zolpidem Tartrate* (Ambien*), 10 MG PO HS, (Reported) [Vit D2], 1.25 MG PO QWEEK, (Reported) Scheduled PRN Albuterol Sulfate* (Albuterol Sulfate Mdi*), 2 PUFF INH Q4H PRN for For Cough Ondansetron Odt* (Zofran Odt*), 4 MG BC EVERY 6 HOURS PRN for Nausea & Vomiting Patient History Healthcare decision maker Resuscitation status FULL CODE Advanced Directive on File Past Medical/Surgical History Past Medical/Surgical History: (1) Diabetic foot infection (2) Diabetic foot ulcer associated with diabetes mellitus due to underlying condition (3) Colon polyps (4) Colon cancer (5) Constipation (6) Epistaxis Review of Systems Constitutional: Reports: no symptoms Eye: Reports: no symptoms ENT: Reports: no symptoms Respiratory: Reports: no symptoms Gastrointestinal: Reports: no symptoms Genitourinary: Reports: no symptoms Musculoskeletal: Reports: joint pain, joint swelling Neurological: Reports: no symptoms Endocrine: Reports: no symptoms Hematologic/Lymphatic: Reports: no symptoms Physical Exam General Appearance: no apparent distress HEENT: atraumatic, anicteric Neck: non-tender Respiratory/Chest: lungs clear, normal breath sounds, no respiratory distress, no accessory muscle use Cardiovascular/Chest: normal rate, regular rhythm, no gallop/murmur Abdomen: normal bowel sounds, non tender, soft, no organomegaly, no mass Extremities: non-tender, other - left foot erytma, swelling Skin Exam: warm/dry Neurologic: director erp II-XII grossly normal Last 24 Hour Vital Signs Date Time Temp Pulse Resp B/P (MAP) Pulse Ox O2 Delivery O2 Flow Rate FiO2 12/31/19 20:41 Room Air 12/31/19 20:31 97.0 67 16 107/50 (69) 95 12/31/19 16:00 97.8 73 18 120/50 (73) 96 12/31/19 12:00 97.5 78 18 103/52 (69) 96 12/31/19 09:00 Room Air 12/31/19 08:00 97.5 84 18 109/58 (75) 97 12/31/19 05:58 97.5 12/31/19 04:00 98.1 75 18 105/55 (72) 94 12/31/19 00:40 97.5 82 17 116/59 (78) 97 12/30/19 23:51 97.5 12/30/19 23:28 Room Air Intake and Output 12/30/19 12/31/19 19:00 07:00 Intake Total 900 ml Balance 900 ml Intake Oral 900 ml # Voids 4 Laboratory Tests Test 12/31/19 06:35 12/31/19 11:37 12/31/19 12:33 12/31/19 20:25 White Blood Count 4.1 K/UL (4.8-10.8) L Red Blood Count 3.85 M/UL (4.20-5.40) L Hemoglobin 10.8 G/DL (12.0-16.0) L Hematocrit 34.2 % (37.0-47.0) L Mean Corpuscular Volume 89 FL (80-99) Mean Corpuscular Hemoglobin 28.2 PG (27.0-31.0) Mean Corpuscular Hemoglobin Concent 31.7 G/DL (32.0-36.0) L Red Cell Distribution Width 16.4 % (11.6-14.8) H Platelet Count 124 K/UL (150-450) L Mean Platelet Volume 7.5 FL (6.5-10.1) Neutrophils (%) (Auto) 62.5 % (45.0-75.0) Lymphocytes (%) (Auto) 24.2 % (20.0-45.0) Monocytes (%) (Auto) 10.3 % (1.0-10.0) H Eosinophils (%) (Auto) 2.0 % (0.0-3.0) Basophils (%) (Auto) 1.0 % (0.0-2.0) Sodium Level 140 MMOL/L (136-145) Potassium Level 3.7 MMOL/L (3.5-5.1) Chloride Level 107 MMOL/L (98-107) Carbon Dioxide Level 25 MMOL/L (21-32) Anion Gap 8 mmol/L (5-15) Blood Urea Nitrogen 26 mg/dL (7-18) H Creatinine 1.0 MG/DL (0.55-1.30) Estimat Glomerular Filtration Rate 53.8 mL/min (>60) Glucose Level 81 MG/DL (74-106) Hemoglobin A1c 5.3 % (4.3-6.0) Calcium Level 8.9 MG/DL (8.5-10.1) Phosphorus Level 4.4 MG/DL (2.5-4.9) Magnesium Level 1.9 MG/DL (1.8-2.4) POC Whole Blood Glucose 61 MG/DL (74-106) L 59 MG/DL (74-106) L 87 MG/DL (74-106) Height (Feet): 5 Height (Inches): 2.00 Weight (Pounds): 125 Medications Current Medications Medications (Trade) Dose Ordered Sig/Dav Route PRN Reason Start Time Stop Time Status Last Admin Dose Admin Acetaminophen (Tylenol) 650 mg Q6H PRN ORAL Mild Pain (Pain Scale 1-3) 12/30/19 22:45 01/29/20 22:44 12/31/19 21:08 Atorvastatin Calcium (Lipitor) 10 mg BEDTIME ORAL 12/31/19 21:00 03/30/20 20:59 12/31/19 20:27 Dextrose (Dextrose 50%) 25 ml Q30M PRN IV Hypoglycemia 12/30/19 22:45 03/29/20 22:44 Dextrose (Dextrose 50%) 50 ml Q30M PRN IV Hypoglycemia 12/30/19 22:45 03/29/20 22:44 12/31/19 12:58 Ergocalciferol (Drisdol) 50,000 intlu ONCE A WEEK ORAL 12/31/19 09:00 01/30/20 08:59 12/31/19 09:19 Folic Acid (Folate) 1 mg DAILY ORAL 12/31/19 09:00 01/30/20 08:59 12/31/19 09:07 Heparin Sodium (Porcine) (Heparin 5000 units/ml) 5,000 units EVERY 12 HOURS SUBQ 12/31/19 09:00 02/14/20 08:59 Insulin Aspart (NovoLOG) BEFORE MEALS AND HS SUBQ 12/31/19 06:30 03/30/20 06:29 Paroxetine HCl (Paxil) 10 mg DAILY ORAL 12/31/19 09:00 01/30/20 08:59 12/31/19 09:07 Piperacillin Sod/ Tazobactam Sod 3.375 gm/Sodium Chloride 110 ml @ 27.5 mls/hr Q8H IVPB 12/31/19 10:00 01/07/20 09:59 12/31/19 17:26 Pregabalin (Lyrica) 100 mg THREE TIMES A DAY ORAL 12/31/19 09:00 01/30/20 08:59 12/31/19 17:25 Vancomycin HCl (Vanco pharmacy to dose) 1 ea DAILY PRN MISC Per rx protocol 12/30/19 22:00 01/29/20 21:59 Vancomycin HCl 1 gm/Dextrose 275 ml @ 183.708 mls/hr Q24H IVPB 12/31/19 22:00 01/05/20 21:59 12/31/19 21:44 Assessment/Plan Status: stable, progressing, tolerating diet Assessment/Plan: #Diabetic foot infection #DM #HTN #HLD #Depression PLAN: - IV vanco and zosyn - wound care - ID eval - surgery eval - hold metformin - resume statin - ISS - paxil -glycemic control fall precaution electrolyte replete as needed d/w Dr Pineda. Thank you for the cortesy of this consultation Shorty Antonio MD Internal Medicine [phone] over 70 minutes spent today time of stamp may NOT be the actual pt ancounter/visit Shorty Antonio MD Dec 31, 2019 22:06
--- NOTE | 2020-01-01 01:00 | NUR ---
NURSE NOTES: Pt asleep. In no acute distress. Breathing unlabored.
[2020-01-01] MEDS: Piperacillin/Tazobactam 3.375 GM in NS 110 ML IVPB SCH ×3 (01:03→17:14)
[2020-01-01 04:13] VITALS: BP 109/57
[2020-01-01] MEDS: NovoLOG Insulin Flexpen SUBQ SCH ×4 (06:21→21:00)
--- NOTE | 2020-01-01 07:04 | NUR ---
NURSE HAND-OFF: Important Events on Shift:tylenol for pain Patient Status: stable Diet: ccho (m) mech soft chopped Pending Orders: none Pending Results/Labs:none Pending MD notification:none Latest Vital Signs: Temperature 98.2 , Pulse 76 , B/P 109 /57 , Respiratory Rate 16 , O2 SAT 94 , Room Air, O2 Flow Rate . Vital Sign Comment: none Latest Brown Fall Score: 30 Fall Risk: Medium Risk Safety Measures: Call light Within Reach, Bed Alarm Zone 2, Side Rails Side Rails x2, Bed position Low and Locked. Fall Precautions: Patient Fall Education Report given to IRENA Ramos.
--- NOTE | 2020-01-01 07:17 | NUR ---
NURSE NOTES: Patient awake, alert x4; on room air, no sing of distress and shortness of breath; no sing of chest pain; side rails up x2, breaks engaged, bed at lowest position, call light within reach; will keep monitoring.
[2020-01-01 07:46] LABS: BASOPHILS % (AUTO) 1.5 % (0.0-2.0); EOSINOPHILS % (AUTO) 6.8 % (0.0-3.0); HEMATOCRIT 35.6 % (37.0-47.0); HEMOGLOBIN 11.2 G/DL (12.0-16.0); LYMPHOCYTES % (AUTO) 47.7 % (20.0-45.0); MEAN CORPUSCULAR VOLUME 90 FL (80-99); MONOCYTES % (AUTO) 11.3 % (1.0-10.0); NEUTROPHILS % (AUTO) 32.6 % (45.0-75.0); PLATELET COUNT 140 K/UL (150-450); RED BLOOD COUNT 3.95 M/UL (4.20-5.40); WHITE BLOOD COUNT 4.7 K/UL (4.8-10.8)
[2020-01-01 08:00] VITALS: BP 125/65
[2020-01-01 08:19] LABS: CALCIUM 9.4 MG/DL (8.5-10.1); CREATININE 1.1 MG/DL (0.55-1.30); POTASSIUM 3.9 MMOL/L (3.5-5.1)
[2020-01-01] MEDS: PARoxetine HCL 10mg tab ORAL SCH (08:31)
[2020-01-01] MEDS: Lyrica 50mg cap ORAL SCH ×3 (08:31→17:12)
[2020-01-01] MEDS: Heparin 5000 units/ml inj SUBQ SCH ×2 (08:32→21:00)
[2020-01-01] MEDS: Acetaminophen 500mg (ES) tab ORAL PRN ×2 (10:24→21:14)
[2020-01-01 12:00] VITALS: BP 138/70
--- NOTE | 2020-01-01 14:16 | Internal Med Progress Note ---
Subjective Date of Service: Jan 01, 2020 Physician Name Shorty Antonio Attending Physician Kodi Pineda M.D. Current Medications Medications (Trade) Dose Ordered Sig/Dav Route PRN Reason Start Time Stop Time Status Last Admin Dose Admin Acetaminophen (Tylenol) 650 mg Q6H PRN ORAL Mild Pain (Pain Scale 1-3) 12/30/19 22:45 01/29/20 22:44 01/01/20 10:24 Atorvastatin Calcium (Lipitor) 10 mg BEDTIME ORAL 12/31/19 21:00 03/30/20 20:59 12/31/19 20:27 Dextrose (Dextrose 50%) 25 ml Q30M PRN IV Hypoglycemia 12/30/19 22:45 03/29/20 22:44 Dextrose (Dextrose 50%) 50 ml Q30M PRN IV Hypoglycemia 12/30/19 22:45 03/29/20 22:44 12/31/19 12:58 Ergocalciferol (Drisdol) 50,000 intlu ONCE A WEEK ORAL 12/31/19 09:00 01/30/20 08:59 12/31/19 09:19 Folic Acid (Folate) 1 mg DAILY ORAL 12/31/19 09:00 01/30/20 08:59 01/01/20 08:31 Heparin Sodium (Porcine) (Heparin 5000 units/ml) 5,000 units EVERY 12 HOURS SUBQ 12/31/19 09:00 02/14/20 08:59 Insulin Aspart (NovoLOG) BEFORE MEALS AND HS SUBQ 12/31/19 06:30 03/30/20 06:29 Paroxetine HCl (Paxil) 10 mg DAILY ORAL 12/31/19 09:00 01/30/20 08:59 01/01/20 08:31 Piperacillin Sod/ Tazobactam Sod 3.375 gm/Sodium Chloride 110 ml @ 27.5 mls/hr Q8H IVPB 12/31/19 10:00 01/07/20 09:59 01/01/20 09:08 Pregabalin (Lyrica) 100 mg THREE TIMES A DAY ORAL 12/31/19 09:00 01/30/20 08:59 01/01/20 13:05 Vancomycin HCl (Vanco pharmacy to dose) 1 ea DAILY PRN MISC Per rx protocol 12/30/19 22:00 01/29/20 21:59 Vancomycin HCl 1 gm/Dextrose 275 ml @ 183.708 mls/hr Q24H IVPB 12/31/19 22:00 01/05/20 21:59 12/31/19 21:44 Allergies: Coded Allergies: No Known Allergies (Unverified , 01/19/12) Constitutional: Reports: no symptoms HEENT: Reports: no symptoms Cardiovascular: Reports: no symptoms Respiratory: Reports: no symptoms Gastrointestinal/Abdominal: Reports: no symptoms Genitourinary: Reports: no symptoms Neurologic/Psychiatric: Reports: no symptoms All Systems: reviewed and negative except above Subjective pain and swelling improving, eager to go home, VSS afebrilw +BM Objective Last Vital Signs Date Time Temp Pulse Resp B/P (MAP) Pulse Ox O2 Delivery O2 Flow Rate FiO2 01/01/20 12:00 97.9 68 18 138/70 (92) 95 01/01/20 09:00 Room Air General Appearance: no apparent distress EENT: normal ENT inspection Neck: non-tender, supple Cardiovascular: normal rate, regular rhythm, no JVD Respiratory/Chest: lungs clear, no respiratory distress, no accessory muscle use Abdomen: normal bowel sounds, non tender, soft, no mass Extremities: other - left 1/2 rayamputation Neurologic: alert, oriented x 3, responsive Skin: warm/dry Laboratory Tests Test 12/31/19 20:25 01/01/20 05:28 01/01/20 07:00 01/01/20 11:25 POC Whole Blood Glucose 87 MG/DL (74-106) 84 MG/DL (74-106) 89 MG/DL (74-106) White Blood Count 4.7 K/UL (4.8-10.8) L Red Blood Count 3.95 M/UL (4.20-5.40) L Hemoglobin 11.2 G/DL (12.0-16.0) L Hematocrit 35.6 % (37.0-47.0) L Mean Corpuscular Volume 90 FL (80-99) Mean Corpuscular Hemoglobin 28.4 PG (27.0-31.0) Mean Corpuscular Hemoglobin Concent 31.6 G/DL (32.0-36.0) L Red Cell Distribution Width 16.0 % (11.6-14.8) H Platelet Count 140 K/UL (150-450) L Mean Platelet Volume 7.8 FL (6.5-10.1) Neutrophils (%) (Auto) 32.6 % (45.0-75.0) L Lymphocytes (%) (Auto) 47.7 % (20.0-45.0) H Monocytes (%) (Auto) 11.3 % (1.0-10.0) H Eosinophils (%) (Auto) 6.8 % (0.0-3.0) H Basophils (%) (Auto) 1.5 % (0.0-2.0) Sodium Level 140 MMOL/L (136-145) Potassium Level 3.9 MMOL/L (3.5-5.1) Chloride Level 105 MMOL/L (98-107) Carbon Dioxide Level 27 MMOL/L (21-32) Anion Gap 8 mmol/L (5-15) Blood Urea Nitrogen 20 mg/dL (7-18) H Creatinine 1.1 MG/DL (0.55-1.30) Estimat Glomerular Filtration Rate 48.2 mL/min (>60) Glucose Level 81 MG/DL (74-106) Calcium Level 9.4 MG/DL (8.5-10.1) Microbiology Date/Time Source Procedure Growth Status 12/31/19 06:00 Foot Left Gram Stain - Final Resulted 12/31/19 06:00 Foot Left Wound Culture - Preliminary NO GROWTH AFTER 24 HOURS Resulted 12/30/19 17:15 Blood Blood Culture - Preliminary NO GROWTH AFTER 24 HOURS Resulted 12/30/19 17:00 Blood Blood Culture - Preliminary NO GROWTH AFTER 24 HOURS Resulted Intake and Output 12/31/19 01/01/20 19:00 07:00 Intake Total 857.5 ml 507.5 ml Balance 857.5 ml 507.5 ml Intake Oral 720 ml 480 ml IV Total 137.5 ml 27.5 ml # Voids 3 3 # Bowel Movements 1 Assessment/Plan Status: stable, progressing, tolerating diet Assessment/Plan #Diabetic foot infection #DM #HTN #HLD #Depression PLAN: - IV vanco and zosyn MRI L foot - wound care - ID eval - surgery f/u - hold metformin - rstatin - ISS - paxil -glycemic control fall precaution electrolyte replete as needed Shorty Antonio MD Internal Medicine [phone] over 35 minutes spent today time of stamp may NOT be the actual pt encounter/visit Shorty Antonio MD Jan 01, 2020 14:16
--- NOTE | 2020-01-01 14:59 | Nephrology Progress Note ---
Assessment/Plan Plan #Diabetic foot infection #DM #HTN #HLD #Depression - vanco and dusty - wound care - ID eval - surgery eval - MRI if patient agrees - hold metformin - resume statin - ISS - resume paxil time spent 65 min Subjective ROS Limited/Unobtainable: No Constitutional: Reports: weakness HEENT: Denies: no symptoms, eye pain, blurred vision, tearing, double vision, ear pain, ear discharge, nose pain, nose congestion, throat pain, throat swelling, mouth pain, mouth swelling, other Genitourinary: Denies: no symptoms, burning, discharge, frequency, flank pain, hematuria, incontinence, pain, urgency, other Neurologic/Psychiatric: Denies: no symptoms, anxiety, depressed, emotional problems, headache, numbness, paresthesia, pre-existing deficit, seizure, tingling, tremors, weakness, other Subjective Foot xray IMPRESSION: 1. Distal first metatarsal amputation at the level of the head. Second digit amputation. 2. No acute abnormality definitively identified to account for patient presentation. 3. Plantar and Achilles calcaneal enthesophytes. 4. Extensive circumferential midfoot and forefoot soft tissue swelling. This could represent cellulitis or edema. Objective Objective Last 24 Hour Vital Signs Date Time Temp Pulse Resp B/P (MAP) Pulse Ox O2 Delivery O2 Flow Rate FiO2 01/01/20 12:00 97.9 68 18 138/70 (92) 95 01/01/20 10:54 98.1 01/01/20 09:00 Room Air 01/01/20 08:00 98.1 71 17 125/65 (85) 97 01/01/20 04:13 98.2 76 16 109/57 (74) 94 12/31/19 20:41 Room Air 12/31/19 20:31 97.0 67 16 107/50 (69) 95 12/31/19 16:00 97.8 73 18 120/50 (73) 96 Intake and Output 12/31/19 01/01/20 19:00 07:00 Intake Total 857.5 ml 507.5 ml Balance 857.5 ml 507.5 ml Intake Oral 720 ml 480 ml IV Total 137.5 ml 27.5 ml # Voids 3 3 # Bowel Movements 1 Laboratory Tests 12/31/19 20:25: POC Whole Blood Glucose 87 01/01/20 05:28: POC Whole Blood Glucose 84 01/01/20 07:00: White Blood Count 4.7L, Red Blood Count 3.95L, Hemoglobin 11.2L, Hematocrit 35.6L, Mean Corpuscular Volume 90, Mean Corpuscular Hemoglobin 28.4, Mean Corpuscular Hemoglobin Concent 31.6L, Red Cell Distribution Width 16.0H, Platelet Count 140L, Mean Platelet Volume 7.8, Neutrophils (%) (Auto) 32.6L, Lymphocytes (%) (Auto) 47.7H, Monocytes (%) (Auto) 11.3H, Eosinophils (%) (Auto) 6.8H, Basophils (%) (Auto) 1.5, Sodium Level 140, Potassium Level 3.9, Chloride Level 105, Carbon Dioxide Level 27, Anion Gap 8, Blood Urea Nitrogen 20H, Creatinine 1.1, Estimat Glomerular Filtration Rate 48.2, Glucose Level 81, Calcium Level 9.4 01/01/20 11:25: POC Whole Blood Glucose 89 Height (Feet): 5 Height (Inches): 2.00 Weight (Pounds): 125 General Appearance: WD/WN, no apparent distress EENT: PERRL/EOMI, normal ENT inspection Neck: non-tender, normal alignment, supple Cardiovascular: normal rate Respiratory/Chest: chest wall non-tender, lungs clear, normal breath sounds Extremities: normal range of motion, non-tender Kodi Pineda M.D. Jan 01, 2020 14:59
[2020-01-01 16:00] VITALS: BP 121/69
--- NOTE | 2020-01-01 17:53 | Consultation ---
History of Present Illness General Date patient seen: Jan 01, 2020 Reason for Hospitalization: General Complaint Present Illness HPI This is a pleasant farsi speaking 79-year-old female with history of diabetes currently on Metformin who is status post amputation of left foot 1/2 ray 6 months by podiatry in clinic who was brought in by son due to worsening pain in surgical site. Patient was told by primary doctor to get cefazolin IV however has not started yet as in-home nurse needs to start giving those next week. Also patient is currently on Keflex p.o. Denies any new injury, is neurovascularly intact, minimal pus is noted at the surgical site. Patient is afebrile. Denies chest pain, shortness of breath, headache and dizziness. Has not taken any other medications for symptom relief. surgery called to evaluate and assist with care. patient seen, chart reviewed, patient examined. prior scheduled for [facility]ic treatment. Allergies: Coded Allergies: No Known Allergies (Unverified , 01/19/12) COVID-19 Screening Contact w/high risk pt: No Experienced COVID-19 symptoms?: No Medication History Scheduled Atenolol* (Tenormin*), 100 MG PO DAILY, (Reported) Rosuvastatin Calcium (Crestor), 10 MG GT DAILY, (Reported) Zolpidem Tartrate* (Ambien*), 10 MG PO HS, (Reported) [Vit D2], 1.25 MG PO QWEEK, (Reported) Scheduled PRN Albuterol Sulfate* (Albuterol Sulfate Mdi*), 2 PUFF INH Q4H PRN for For Cough Ondansetron Odt* (Zofran Odt*), 4 MG BC EVERY 6 HOURS PRN for Nausea & Vomiting Patient History History Provided By: Patient, Medical Record, PMD Healthcare decision maker Resuscitation status Advanced Directive on File Past Medical/Surgical History Past Medical/Surgical History: (1) Constipation (2) Colon cancer (3) Colon polyps (4) Bronchitis (5) Epistaxis (6) Epistaxis (7) Accidental marijuana overdose (8) Infection of amputation site of lower extremity (9) Diabetic foot infection (10) Diabetic foot ulcer associated with diabetes mellitus due to underlying condition Review of Systems Review of Symptoms General ROS: no weight loss or fever Psychological ROS: no depression or mood changes, no memory loss Ophthalmic ROS: no visual changes or eye irritation ENT ROS: no nasal congestion, hearing loss, dizziness Allergy and Immunology ROS: no allergic symptoms or urticaria Hematological and Lymphatic ROS: no swollen glands, unusual bleeding or bruising Endocrine ROS: no polyuria, polydipsia, weight changes, temperature intolerance Respiratory ROS: no cough, shortness of breath, or wheezing Cardiovascular ROS: no chest pain or dyspnea on exertion Gastrointestinal ROS: denies abdominal pain, bright red blood in stool. Musculoskeletal ROS: no myalgias or arthralgias Neurological ROS: no TIA or stroke symptoms Dermatological ROS: no new or changing skin lesions, rashes or pruritis Physical Exam Physical Exam General appearance: alert, cooperative, no distress, appears stated age Head: Normocephalic, without obvious abnormality, atraumatic Eyes: conjunctivae/corneas clear. PERRL, EOM's intact. Fundi benign Throat: Lips, mucosa, and tongue normal. Teeth and gums normal Neck: supple, symmetrical, trachea midline, no adenopathy, thyroid: not enlarged, symmetric, no tenderness/mass/nodules, no carotid bruit and no JVD Lungs: clear to auscultation bilaterally Heart: regular rate and rhythm, S1, S2 normal, no murmur, click, rub or gallop Abdomen: soft, non-tender. Bowel sounds normal. No masses, no organomegaly Extremities: extremities see below Pulses: 2+ and symmetric Skin: Skin color, texture, turgor normal. No rashes or lesions Neurologic: Grossly normal Last 24 Hour Vital Signs Date Time Temp Pulse Resp B/P (MAP) Pulse Ox O2 Delivery O2 Flow Rate FiO2 01/01/20 16:00 98.5 76 18 121/69 (86) 97 01/01/20 12:00 97.9 68 18 138/70 (92) 95 01/01/20 10:54 98.1 01/01/20 09:00 Room Air 01/01/20 08:00 98.1 71 17 125/65 (85) 97 01/01/20 04:13 98.2 76 16 109/57 (74) 94 12/31/19 20:41 Room Air 12/31/19 20:31 97.0 67 16 107/50 (69) 95 Intake and Output 12/31/19 01/01/20 19:00 07:00 Intake Total 857.5 ml 507.5 ml Balance 857.5 ml 507.5 ml Intake Oral 720 ml 480 ml IV Total 137.5 ml 27.5 ml # Voids 3 3 # Bowel Movements 1 Laboratory Tests Test 12/31/19 20:25 01/01/20 05:28 01/01/20 07:00 01/01/20 11:25 POC Whole Blood Glucose 87 MG/DL (74-106) 84 MG/DL (74-106) 89 MG/DL (74-106) White Blood Count 4.7 K/UL (4.8-10.8) L Red Blood Count 3.95 M/UL (4.20-5.40) L Hemoglobin 11.2 G/DL (12.0-16.0) L Hematocrit 35.6 % (37.0-47.0) L Mean Corpuscular Volume 90 FL (80-99) Mean Corpuscular Hemoglobin 28.4 PG (27.0-31.0) Mean Corpuscular Hemoglobin Concent 31.6 G/DL (32.0-36.0) L Red Cell Distribution Width 16.0 % (11.6-14.8) H Platelet Count 140 K/UL (150-450) L Mean Platelet Volume 7.8 FL (6.5-10.1) Neutrophils (%) (Auto) 32.6 % (45.0-75.0) L Lymphocytes (%) (Auto) 47.7 % (20.0-45.0) H Monocytes (%) (Auto) 11.3 % (1.0-10.0) H Eosinophils (%) (Auto) 6.8 % (0.0-3.0) H Basophils (%) (Auto) 1.5 % (0.0-2.0) Sodium Level 140 MMOL/L (136-145) Potassium Level 3.9 MMOL/L (3.5-5.1) Chloride Level 105 MMOL/L (98-107) Carbon Dioxide Level 27 MMOL/L (21-32) Anion Gap 8 mmol/L (5-15) Blood Urea Nitrogen 20 mg/dL (7-18) H Creatinine 1.1 MG/DL (0.55-1.30) Estimat Glomerular Filtration Rate 48.2 mL/min (>60) Glucose Level 81 MG/DL (74-106) Calcium Level 9.4 MG/DL (8.5-10.1) Height (Feet): 5 Height (Inches): 2.00 Weight (Pounds): 125 Medications Current Medications Medications (Trade) Dose Ordered Sig/Dav Route PRN Reason Start Time Stop Time Status Last Admin Dose Admin Acetaminophen (Tylenol) 650 mg Q6H PRN ORAL Mild Pain (Pain Scale 1-3) 12/30/19 22:45 01/29/20 22:44 01/01/20 10:24 Atorvastatin Calcium (Lipitor) 10 mg BEDTIME ORAL 12/31/19 21:00 03/30/20 20:59 12/31/19 20:27 Dextrose (Dextrose 50%) 25 ml Q30M PRN IV Hypoglycemia 12/30/19 22:45 03/29/20 22:44 Dextrose (Dextrose 50%) 50 ml Q30M PRN IV Hypoglycemia 12/30/19 22:45 03/29/20 22:44 12/31/19 12:58 Ergocalciferol (Drisdol) 50,000 intlu ONCE A WEEK ORAL 12/31/19 09:00 01/30/20 08:59 12/31/19 09:19 Folic Acid (Folate) 1 mg DAILY ORAL 12/31/19 09:00 01/30/20 08:59 01/01/20 08:31 Heparin Sodium (Porcine) (Heparin 5000 units/ml) 5,000 units EVERY 12 HOURS SUBQ 12/31/19 09:00 02/14/20 08:59 Insulin Aspart (NovoLOG) BEFORE MEALS AND HS SUBQ 12/31/19 06:30 03/30/20 06:29 Paroxetine HCl (Paxil) 10 mg DAILY ORAL 12/31/19 09:00 01/30/20 08:59 01/01/20 08:31 Piperacillin Sod/ Tazobactam Sod 3.375 gm/Sodium Chloride 110 ml @ 27.5 mls/hr Q8H IVPB 12/31/19 10:00 01/07/20 09:59 01/01/20 17:14 Pregabalin (Lyrica) 100 mg THREE TIMES A DAY ORAL 12/31/19 09:00 01/30/20 08:59 01/01/20 17:12 Vancomycin HCl (Vanco pharmacy to dose) 1 ea DAILY PRN MISC Per rx protocol 12/30/19 22:00 01/29/20 21:59 Vancomycin HCl 1 gm/Dextrose 275 ml @ 183.708 mls/hr Q24H IVPB 12/31/19 22:00 01/05/20 21:59 12/31/19 21:44 Assessment/Plan Problem List: (1) Infection of amputation site of lower extremity Assessment & Plan: left foot 1/2 ray amputation with dehiscence at flap closure noted 2mm with slough. no purulent drainage. tender, cellulitis. no bone exposed. no foul odor patient states she has it cleaned at home states she needs to go home brooks to take care of her wound washed. swab with Betadine and apply optifoam dressings daily outpatient wound care abx as per ID will plan for MRI if patient agreeable thank you Bones/joints: Distal first metatarsal amputation at the level of the head. Second digit amputation. Plantar and Achilles calcaneal enthesophytes. No acute fracture. No dislocation. Soft tissues: Extensive circumferential midfoot and forefoot soft tissue swelling. This could represent cellulitis or edema. No radiopaque foreign body. Other findings: No acute abnormality definitively identified to account for patient presentation. IMPRESSION: 1. Distal first metatarsal amputation at the level of the head. Second digit amputation. 2. No acute abnormality definitively identified to account for patient presentation. 3. Plantar and Achilles calcaneal enthesophytes. 4. Extensive circumferential midfoot and forefoot soft tissue swelling. This could represent cellulitis or edema. ICD Codes: T87.40 - Infection of amputation stump, unspecified extremity SNOMED: 445493548, 136924164 (2) Epistaxis ICD Codes: R04.0 - Epistaxis SNOMED: 66041141 (3) Epistaxis ICD Codes: R04.0 - Epistaxis SNOMED: 25803404 (4) Constipation ICD Codes: K59.00 - Constipation SNOMED: 92344929 (5) Colon cancer ICD Codes: C18.9 - Colon cancer SNOMED: 944196012 (6) Bronchitis ICD Codes: J40 - Bronchitis, not specified as acute or chronic SNOMED: 35639407 (7) Colon polyps ICD Codes: K63.5 - Colon polyps SNOMED: 68738163 (8) Accidental marijuana overdose ICD Codes: T40.7X1A - Poisoning by cannabis (derivatives), accidental (unintentional), initial encounter SNOMED: 237232007 (9) Diabetic foot infection ICD Codes: E11.628 - Type 2 diabetes mellitus with other skin complications; L 08.9 - Local infection of the skin and subcutaneous tissue, unspecified SNOMED: 668483574, 43354001 (10) Diabetic foot ulcer associated with diabetes mellitus due to underlying condition ICD Codes: E08.621 - Diabetes mellitus due to underlying condition with foot ulcer; L97.509 - Non-pressure chronic ulcer of other part of unspecified foot with unspecified severity SNOMED: 4489386, 979618318 [facility] Hospital declaration \ Roger Sutton Jan 01, 2020 17:53
--- NOTE | 2020-01-01 19:30 | NUR ---
NURSE NOTES: Received report from mahad cabello. patient is on bed, awake and verbally responsive. able to express self. with iv access on the left hand, saline lock. denies any pain or discomfort. per destiney" with diabetic foot ulcer , leave open to air per md". ambulates reiterated to call and ask for assistance to prevent fall or injury. call light and light button within easy reach. bed locked and in lowest position. bed alarm on. will continue plan of care.
--- NOTE | 2020-01-01 19:34 | NUR ---
HAND-OFF: Report given to IRENA Villa.
[2020-01-01 20:00] VITALS: BP 120/68
--- NOTE | 2020-01-01 20:40 | Cardiology Report ---
APPROVED REPORT EKG Measurement Heart [id number] NM [id number] <Conclusion> Normal sinus rhythm Normal ECG
--- NOTE | 2020-01-01 21:00 | NUR ---
NURSE NOTES: acucheck done at bedtime with a result of 140 mg/dl. patient refused to take insulin. explained risks and benefits. patient still refused.
--- NOTE | 2020-01-01 21:09 | Infectious Diseases Prog Note ---
Assessment/Plan Assessment/Plan Full consult dictated: A) 1) left foot wound infection at amputation site, ? osteomyelitis 2) dm 3) htn P) 1) vancomycin and zosyn 2) f/u on culture left foot - negative to date 3) surgery evaluation noted - MRI if patient accepts 4) monitor labs 5) will f/u Subjective Constitutional: Denies: fever HEENT: Denies: congestion Respiratory: Denies: shortness of breath Cardiovascular: Denies: chest pain Gastrointestinal/Abdominal: Denies: nausea, vomiting Genitourinary: Reports: other - no figueroa Allergies: Coded Allergies: No Known Allergies (Unverified , 01/19/12) Objective Last 24 Hour Vital Signs Date Time Temp Pulse Resp B/P (MAP) Pulse Ox O2 Delivery O2 Flow Rate FiO2 01/01/20 16:00 98.5 76 18 121/69 (86) 97 01/01/20 12:00 97.9 68 18 138/70 (92) 95 01/01/20 10:54 98.1 01/01/20 09:00 Room Air 01/01/20 08:00 98.1 71 17 125/65 (85) 97 01/01/20 04:13 98.2 76 16 109/57 (74) 94 Height (Feet): 5 Height (Inches): 2.00 Weight (Pounds): 125 General Appearance: no acute distress HEENT: normocephalic, atraumatic, anicteric Respiratory/Chest: lungs clear, normal breath sounds, no respiratory distress Cardiovascular: normal rate, regular rhythm Abdomen: normal bowel sounds, soft, non tender, no organomegaly, non distended Microbiology Date/Time Source Procedure Growth Status 12/31/19 06:00 Foot Left Gram Stain - Final Resulted 12/31/19 06:00 Foot Left Wound Culture - Preliminary NO GROWTH AFTER 24 HOURS Resulted 12/30/19 17:15 Blood Blood Culture - Preliminary NO GROWTH AFTER 24 HOURS Resulted 12/30/19 17:00 Blood Blood Culture - Preliminary NO GROWTH AFTER 24 HOURS Resulted Laboratory Tests Test 01/01/20 05:28 01/01/20 07:00 01/01/20 11:25 POC Whole Blood Glucose 84 MG/DL (74-106) 89 MG/DL (74-106) White Blood Count 4.7 K/UL (4.8-10.8) L Red Blood Count 3.95 M/UL (4.20-5.40) L Hemoglobin 11.2 G/DL (12.0-16.0) L Hematocrit 35.6 % (37.0-47.0) L Mean Corpuscular Volume 90 FL (80-99) Mean Corpuscular Hemoglobin 28.4 PG (27.0-31.0) Mean Corpuscular Hemoglobin Concent 31.6 G/DL (32.0-36.0) L Red Cell Distribution Width 16.0 % (11.6-14.8) H Platelet Count 140 K/UL (150-450) L Mean Platelet Volume 7.8 FL (6.5-10.1) Neutrophils (%) (Auto) 32.6 % (45.0-75.0) L Lymphocytes (%) (Auto) 47.7 % (20.0-45.0) H Monocytes (%) (Auto) 11.3 % (1.0-10.0) H Eosinophils (%) (Auto) 6.8 % (0.0-3.0) H Basophils (%) (Auto) 1.5 % (0.0-2.0) Sodium Level 140 MMOL/L (136-145) Potassium Level 3.9 MMOL/L (3.5-5.1) Chloride Level 105 MMOL/L (98-107) Carbon Dioxide Level 27 MMOL/L (21-32) Anion Gap 8 mmol/L (5-15) Blood Urea Nitrogen 20 mg/dL (7-18) H Creatinine 1.1 MG/DL (0.55-1.30) Estimat Glomerular Filtration Rate 48.2 mL/min (>60) Glucose Level 81 MG/DL (74-106) Calcium Level 9.4 MG/DL (8.5-10.1) Current Medications Medications (Trade) Dose Ordered Sig/Dav Route PRN Reason Start Time Stop Time Status Last Admin Dose Admin Acetaminophen (Tylenol) 650 mg Q6H PRN ORAL Mild Pain (Pain Scale 1-3) 12/30/19 22:45 01/29/20 22:44 01/01/20 10:24 Atorvastatin Calcium (Lipitor) 10 mg BEDTIME ORAL 12/31/19 21:00 03/30/20 20:59 12/31/19 20:27 Dextrose (Dextrose 50%) 25 ml Q30M PRN IV Hypoglycemia 12/30/19 22:45 03/29/20 22:44 Dextrose (Dextrose 50%) 50 ml Q30M PRN IV Hypoglycemia 12/30/19 22:45 03/29/20 22:44 12/31/19 12:58 Ergocalciferol (Drisdol) 50,000 intlu ONCE A WEEK ORAL 12/31/19 09:00 01/30/20 08:59 12/31/19 09:19 Folic Acid (Folate) 1 mg DAILY ORAL 12/31/19 09:00 01/30/20 08:59 01/01/20 08:31 Heparin Sodium (Porcine) (Heparin 5000 units/ml) 5,000 units EVERY 12 HOURS SUBQ 12/31/19 09:00 02/14/20 08:59 Insulin Aspart (NovoLOG) BEFORE MEALS AND HS SUBQ 12/31/19 06:30 03/30/20 06:29 Paroxetine HCl (Paxil) 10 mg DAILY ORAL 12/31/19 09:00 01/30/20 08:59 01/01/20 08:31 Piperacillin Sod/ Tazobactam Sod 3.375 gm/Sodium Chloride 110 ml @ 27.5 mls/hr Q8H IVPB 12/31/19 10:00 01/07/20 09:59 01/01/20 17:14 Pregabalin (Lyrica) 100 mg THREE TIMES A DAY ORAL 12/31/19 09:00 01/30/20 08:59 01/01/20 17:12 Vancomycin HCl (Vanco pharmacy to dose) 1 ea DAILY PRN MISC Per rx protocol 12/30/19 22:00 01/29/20 21:59 Vancomycin HCl 1 gm/Dextrose 275 ml @ 183.708 mls/hr Q24H IVPB 12/31/19 22:00 01/05/20 21:59 12/31/19 21:44 Debbie Abel MD Jan 01, 2020 21:09
[2020-01-01] MEDS: Vancomycin 1gm in D5W 275ml IVPB SCH (21:15)
--- NOTE | 2020-01-02 01:44 | Consultation ---
DATE OF CONSULTATION: 01/01/2020 INFECTIOUS DISEASE CONSULTATION CONSULTING PHYSICIAN: Debbie Abel MD ATTENDING PHYSICIAN: Kodi Pineda MD REFERRING PHYSICIAN: Kodi Pineda MD REASON FOR CONSULTATION: Left foot amputation site or stump wound infection, possible osteo. CHIEF COMPLAINT: The patient's chief complaint coming in the hospital is soft tissue infection of the left foot. HISTORY OF PRESENT ILLNESS: This is a very pleasant 79-year-old female, who is diabetic, who is status post amputation of the left foot, looks like the big toe approximately six months ago. The patient comes in with surgical site stump infected wound of the left foot. Infectious Disease consultation was requested. She had drainage. The wound culture obtained so far is negative. X-ray showed no obvious osteo. The patient was also seen by Surgery. Infectious Disease consultation was requested for antibiotic management. She is on vanco and Zosyn. MAR was noted. Notes and records were reviewed. Case was also communicated with Surgery, Dr. Sutton, and the patient will need an MRI if the patient allows us to do an MRI to rule out any underlying osteomyelitis of this patient. At this time, we will continue vanco and Zosyn. REVIEW OF SYSTEMS: CONSTITUTIONAL: The patient has no fever, chills, or night sweats. HEAD AND NECK: No headache, neck stiffness, thrush, or dysphagia. CARDIAC: No chest pain or palpitations. GASTROINTESTINAL: No nausea, vomiting, abdominal pain, or diarrhea. GENITOURINARY: No dysuria or frequency. PULMONARY: No cough, congestion, or hemoptysis. SKIN: No rash. EXTREMITIES: She has left foot pain. NEUROLOGIC: No seizures. Denies fatigue. No focal weakness. PAST MEDICAL HISTORY: The patient has a past medical history of diabetes, amputation of left big toe, left foot, diabetes. She also has past medical history includes history of diabetic foot infection, diabetes mellitus, hypertension, essential hypertension, hyperlipidemia, dyslipidemia, and depression. ALLERGIES: She has no known drug allergies. No antibiotic allergies. SOCIAL HISTORY: Negative for smoking, alcohol, or drug abuse. FAMILY HISTORY: Noncontributory. Negative for tuberculosis or cancer. MEDICATIONS: Upon reviewing the MAR, she is on following medications: She is on atorvastatin, vancomycin, Zosyn, folic acid, paroxetine, ergocalciferol, heparin, insulin, IV fluids, acetaminophen. Outside medications were noted and reconciliated. PHYSICAL EXAMINATION: VITAL SIGNS: Temperature 98.5, pulse rate is 76, respiratory rate 18, blood pressure 121/69, saturation 97% on room air. GENERAL: Alert, responsive, in no distress. HEAD AND NECK: Oral exam, no thrush. Eye exam, no icterus. Normocephalic. Neck is supple. No JVD. HEART: Regular. No gallop or murmur. No friction rub. ABDOMEN: Soft. Positive bowel sounds. Nontender. No organomegaly. LUNGS: Clear bilaterally. No rhonchi or rales. SKIN: No rash or dermatitis. MUSCULOSKELETAL: No effusion. Legs have cellulitis. Left foot exam, she has drainage and looks like the wound dehiscence of the left foot surgical site from the amputation. There is some slough noted. PERIPHERAL VASCULAR: No gangrene. GENITOURINARY: No [place]. LINE SITES: Without phlebitis. NEUROLOGIC: Intact, nonfocal. Alert and oriented. LABORATORY AND DIAGNOSTIC DATA: Chest x-ray, compressive changes. No obvious pneumonia. An x-ray of left foot showed no obvious osteo and no acute abnormality. Blood and wound cultures negative. Creatinine 1.1. Sed rate 40, white count 4.7, hemoglobin 11.2. MRI of the left foot might be ordered. ASSESSMENT AND PLAN: 1. The patient has left foot stump site wound infection. Question of osteomyelitis. The wound dehiscence of the amputation site from surgery, which was done six months ago. Continue vanco and Zosyn empirically for MRSA gram-negative coverage. Continue vanco and Zosyn for infected left foot wound at the stump site or amputation site. The patient may need an MRI if she allows. X-ray right now shows an obvious osteo. Check final wound culture of the left foot, infected wound at the stump site. 2. Case communicated with Surgery. 3. Left foot amputation of big toe. 4. Diabetes. 5. Blood sugar treatment per primary care team. 6. Hypertension. 7. Blood pressure treatment per primary team. 8. Hyperlipidemia. 9. Depression. 10. Continue treatment per primary consultants. 11. No known drug allergies. 12. Social history is negative. 13. Family history is noncontributory. 14. MAR is noted. 15. Case was discussed with RN. 16. Wound care per Surgery and protocol. Debbie Abel M.D. DR: JUAN JOB#: [id number] CC:
[2020-01-02] MEDS: Piperacillin/Tazobactam 3.375 GM in NS 110 ML IVPB SCH ×3 (01:50→18:00)
[2020-01-02 04:00] VITALS: BP 123/65
[2020-01-02] MEDS: NovoLOG Insulin Flexpen SUBQ SCH ×3 (05:33→16:30)
[2020-01-02 08:00] VITALS: BP 127/61
--- NOTE | 2020-01-02 08:00 | NUR ---
NURSE NOTES: Received report from Susan OSBORN, pt a/a/o Farsi speaking lady with no signs of distress or other issues at this time. wound care dressing done per night cleaner nurse. IV on the left HENSLEY gauge #22 patent and intact. Call light within reach, bed in lowest position, side rales up x2.I will f/u as needed.
--- NOTE | 2020-01-02 08:00 | NUR ---
NURSE HAND-OFF: Important Events on Shift: BLOOD SUGAR MONITORING; Patient Status: STABLE Diet: CCHO Pending Orders: VANCO TROUGH 01/01 2100 Pending Results/Labs: Pending MD notification: Latest Vital Signs: Temperature 97.6 , Pulse 73 , B/P 123 /65 , Respiratory Rate 20 , O2 SAT 98 , Room Air, O2 Flow Rate . Vital Sign Comment: Latest Brown Fall Score: 30 Fall Risk: Medium Risk Safety Measures: Call light Within Reach, Bed Alarm Zone 2, Side Rails Side Rails x2, Bed position Low and Locked. Fall Precautions: Patient Fall Education REPORT GIVEN TO ELIZABETH
[2020-01-02 09:03] LABS: BASOPHILS % (AUTO) 1.3 % (0.0-2.0); EOSINOPHILS % (AUTO) 6.5 % (0.0-3.0); HEMATOCRIT 36.3 % (37.0-47.0); HEMOGLOBIN 11.6 G/DL (12.0-16.0); LYMPHOCYTES % (AUTO) 40.3 % (20.0-45.0); MEAN CORPUSCULAR VOLUME 90 FL (80-99); MONOCYTES % (AUTO) 13.1 % (1.0-10.0); NEUTROPHILS % (AUTO) 38.9 % (45.0-75.0); PLATELET COUNT 152 K/UL (150-450); RED BLOOD COUNT 4.04 M/UL (4.20-5.40); RED CELL DISTRIBUTION WIDTH 15.9 % (11.6-14.8); WHITE BLOOD COUNT 5.6 K/UL (4.8-10.8)
[2020-01-02 09:17] LABS: ALBUMIN 3.3 G/DL (3.4-5.0); BILIRUBIN,TOTAL 0.4 MG/DL (0.2-1.0); CALCIUM 9.5 MG/DL (8.5-10.1); POTASSIUM 3.9 MMOL/L (3.5-5.1)
--- NOTE | 2020-01-02 10:34 | Nephrology Progress Note ---
Assessment/Plan Plan #Diabetic foot infection #DM #HTN #HLD #Depression - MRI neg - will DC with augmetin and doxy for one week - follow up with Dr. Liriano - wound care - ID eval - surgery eval - MRI if patient agrees - hold metformin - resume statin - ISS - resume paxil time spent 65 min Subjective ROS Limited/Unobtainable: Yes Constitutional: Reports: weakness HEENT: Denies: no symptoms, eye pain, blurred vision, tearing, double vision, ear pain, ear discharge, nose pain, nose congestion, throat pain, throat sw elling, mouth pain, mouth swelling, other Genitourinary: Denies: no symptoms, burning, discharge, frequency, flank pain, hematuria, incontinence, pain, urgency, other Neurologic/Psychiatric: Denies: no symptoms, anxiety, depressed, emotional problems, headache, numbness, paresthesia, pre-existing deficit, seizure, tingling, tremors, weakness, other Subjective Foot xray IMPRESSION: 1. Distal first metatarsal amputation at the level of the head. Second digit amputation. 2. No acute abnormality definitively identified to account for patient presentation. 3. Plantar and Achilles calcaneal enthesophytes. 4. Extensive circumferential midfoot and forefoot soft tissue swelling. This could represent cellulitis or edema. MRI neg Objective Objective Last 24 Hour Vital Signs Date Time Temp Pulse Resp B/P (MAP) Pulse Ox O2 Delivery O2 Flow Rate FiO2 01/02/20 08:00 97.4 76 19 127/61 (83) 01/02/20 04:00 97.6 73 20 123/65 (84) 98 01/01/20 21:44 98.5 01/01/20 21:00 Room Air 01/01/20 20:00 97.6 70 20 120/68 (85) 98 01/01/20 16:00 98.5 76 18 121/69 (86) 97 01/01/20 12:00 97.9 68 18 138/70 (92) 95 01/01/20 10:54 98.1 Intake and Output 01/01/20 01/02/20 19:00 07:00 Intake Total 1037.5 ml 627.5 ml Balance 1037.5 ml 627.5 ml Intake Oral 600 ml IV Total 137.5 ml 27.5 ml Other 900 ml # Voids 3 Laboratory Tests 01/01/20 11:25: POC Whole Blood Glucose 89 01/01/20 20:17: POC Whole Blood Glucose 140H 01/02/20 08:20: White Blood Count 5.6, Red Blood Count 4.04L, Hemoglobin 11.6L, Hematocrit 36.3L , Mean Corpuscular Volume 90, Mean Corpuscular Hemoglobin 28.6, Mean Corpuscular Hemoglobin Concent 31.9L, Red Cell Distribution Width 15.9H, Platelet Count 152, Mean Platelet Volume 8.1, Neutrophils (%) (Auto) 38.9L, Lymphocytes (%) (Auto) 40.3, Monocytes (%) (Auto) 13.1H, Eosinophils (%) (Auto) 6.5H, Basophils (%) (Auto) 1.3, Erythrocyte Sedimentation Rate 36H, Sodium Level 140, Potassium Level 3.9, Chloride Level 106, Carbon Dioxide Level 27, Anion Gap 7, Blood Urea Nitrogen 16, Creatinine 1.0, Estimat Glomerular Filtration Rate 53.8, Glucose Level 99, Calcium Level 9.5, Total Bilirubin 0.4, Aspartate Amino Transf (AST/SGOT) 26, Alanine Aminotransferase (ALT/SGPT) 18, Alkaline Phosphatase 36L, C-Reactive Protein, Quantitative 0.6, Total Protein 6.7, Albumin 3.3L, Globulin 3.4, Albumin/Globulin Ratio 1.0 Height (Feet): 5 Height (Inches): 2.00 Weight (Pounds): 125 Kodi Pineda M.D. Jan 02, 2020 10:34
[2020-01-02] MEDS: PARoxetine HCL 10mg tab ORAL SCH (11:27)
[2020-01-02] MEDS: Lyrica 50mg cap ORAL SCH ×3 (11:27→18:33)
[2020-01-02] MEDS: Heparin 5000 units/ml inj SUBQ SCH (11:30)
[2020-01-02 12:00] VITALS: BP 137/64
[2020-01-02] MEDS ORDERED: Heparin1,000 units/500ml Premix(Conc:2 units/ml) IV PRN (12:00)
[2020-01-02] MEDS ORDERED: Lidocaine 1% Plain 30 ml INJ PRN (12:00)
[2020-01-02] MEDS ORDERED: Gadavist 7.5mMol/7.5ml vial IV PRN (13:45)
--- NOTE | 2020-01-02 14:03 | Surgery Progress Note ---
Surgery Progress Note Subjective Additional Comments pending MRI no n/v comfortable Objective Last 24 Hour Vital Signs Date Time Temp Pulse Resp B/P (MAP) Pulse Ox O2 Delivery O2 Flow Rate FiO2 01/02/20 12:00 98.2 77 19 137/64 (88) 98 01/02/20 08:00 97.4 76 19 127/61 (83) 01/02/20 04:00 97.6 73 20 123/65 (84) 98 01/01/20 21:44 98.5 01/01/20 21:00 Room Air 01/01/20 20:00 97.6 70 20 120/68 (85) 98 01/01/20 16:00 98.5 76 18 121/69 (86) 97 I&O Intake and Output 01/01/20 01/02/20 19:00 07:00 Intake Total 1037.5 ml 627.5 ml Balance 1037.5 ml 627.5 ml Intake Oral 600 ml IV Total 137.5 ml 27.5 ml Other 900 ml # Voids 3 Dressing: dry Wound: clean Cardiovascular: RSR Respiratory: clear Abdomen: soft, non-tender, present bowel sounds, non-distended Extremities: edema, tenderness, no cyanosis Laboratory Tests Test 01/01/20 20:17 01/02/20 08:20 01/02/20 12:19 POC Whole Blood Glucose 140 MG/DL (74-106) H 76 MG/DL (74-106) White Blood Count 5.6 K/UL (4.8-10.8) Red Blood Count 4.04 M/UL (4.20-5.40) L Hemoglobin 11.6 G/DL (12.0-16.0) L Hematocrit 36.3 % (37.0-47.0) L Mean Corpuscular Volume 90 FL (80-99) Mean Corpuscular Hemoglobin 28.6 PG (27.0-31.0) Mean Corpuscular Hemoglobin Concent 31.9 G/DL (32.0-36.0) L Red Cell Distribution Width 15.9 % (11.6-14.8) H Platelet Count 152 K/UL (150-450) Mean Platelet Volume 8.1 FL (6.5-10.1) Neutrophils (%) (Auto) 38.9 % (45.0-75.0) L Lymphocytes (%) (Auto) 40.3 % (20.0-45.0) Monocytes (%) (Auto) 13.1 % (1.0-10.0) H Eosinophils (%) (Auto) 6.5 % (0.0-3.0) H Basophils (%) (Auto) 1.3 % (0.0-2.0) Erythrocyte Sedimentation Rate 36 MM/HR (0-30) H Sodium Level 140 MMOL/L (136-145) Potassium Level 3.9 MMOL/L (3.5-5.1) Chloride Level 106 MMOL/L (98-107) Carbon Dioxide Level 27 MMOL/L (21-32) Anion Gap 7 mmol/L (5-15) Blood Urea Nitrogen 16 mg/dL (7-18) Creatinine 1.0 MG/DL (0.55-1.30) Estimat Glomerular Filtration Rate 53.8 mL/min (>60) Glucose Level 99 MG/DL (74-106) Calcium Level 9.5 MG/DL (8.5-10.1) Total Bilirubin 0.4 MG/DL (0.2-1.0) Aspartate Amino Transf (AST/SGOT) 26 U/L (15-37) Alanine Aminotransferase (ALT/SGPT) 18 U/L (12-78) Alkaline Phosphatase 36 U/L (46-116) L C-Reactive Protein, Quantitative 0.6 mg/dL (0.00-0.90) Total Protein 6.7 G/DL (6.4-8.2) Albumin 3.3 G/DL (3.4-5.0) L Globulin 3.4 g/dL Albumin/Globulin Ratio 1.0 (1.0-2.7) Plan Problems: (1) Infection of amputation site of lower extremity Assessment & Plan: left foot 1/2 ray amputation with dehiscence at flap closure noted 2mm with slough. no purulent drainage. tender, cellulitis. no bone exposed. no foul odor patient states she has it cleaned at home states she needs to go home [facility] to take care of her wound washed. swab with Betadine and apply optifoam dressings daily outpatient wound care abx as per ID will plan for MRI if patient agreeable thank you Bones/joints: Distal first metatarsal amputation at the level of the head. Second digit amputation. Plantar and Achilles calcaneal enthesophytes. No acute fracture. No dislocation. Soft tissues: Extensive circumferential midfoot and forefoot soft tissue swelling. This could represent cellulitis or edema. No radiopaque foreign body. Other findings: No acute abnormality definitively identified to account for patient presentation. IMPRESSION: 1. Distal first metatarsal amputation at the level of the head. Second digit amputation. 2. No acute abnormality definitively identified to account for patient presentation. 3. Plantar and Achilles calcaneal enthesophytes. 4. Extensive circumferential midfoot and forefoot soft tissue swelling. This could represent cellulitis or edema. (2) Epistaxis (3) Epistaxis (4) Constipation (5) Colon cancer (6) Bronchitis (7) Colon polyps (8) Accidental marijuana overdose (9) Diabetic foot infection (10) Diabetic foot ulcer associated with diabetes mellitus due to underlying condition Roger Sutton Jan 02, 2020 14:03
[2020-01-02 16:00] VITALS: BP 135/65
--- NOTE | 2020-01-02 16:37 | Consultation ---
Consult Note Consult Note CARDIOLOGY CONSULTATION: Chart reviewed, patient examined Requested to see patient by the family. Patient well known to me from the office and [facility]. Awaiting MRI Cont. current ABx. Wound care- will ask wound care nurse to see patient. Full note to follow Andre Hatch MD Jan 02, 2020 16:37
--- NOTE | 2020-01-02 16:40 | NUR ---
CASE MANAGEMENT:REVIEW 12/30/19 79 YR OLD FEMALE FROM HOME CC;GENERAL COMPLAINT SI;DIABETIC FOOT ULCER. LE AMPUTATION STUMP INFECTION. 98.1 85 16 118/71 98% ON RA H/H 11.4/34.7 BUN 34 UA+ LEUKOCYTE ESTERASE LT FOOT XRAY ~ 1. Distal first metatarsal amputation at the level of the head. Second digit amputation. 2. No acute abnormality definitively identified to account for patient presentation. 3. Plantar and Achilles calcaneal enthesophytes. 4. Extensive circumferential midfoot and forefoot soft tissue swelling. This could represent cellulitis or edema. CXR ~ 1. Low lung volumes with bronchovascular crowding. 2. Otherwise no acute cardiopulmonary disease. 3. If there is continued concern, recommend frontal and lateral chest radiographs or CT. IS;VANCOMYCIN IV CEFAZOLIN IV ZOSYN IV ADMITTED TO MED SURG MED SURG STATUS DCP;FROM HOME CASE MANAGEMENT:REVIEW 01/02/20 SI;LLE CELLULITIS. AMPUTATION STUMP INFECTION. 98.5 77 20 137/64 98% ON RA IS;ZOSYN IV Q8 VANCOMYCIN IV Q24 HEPARIN SQ Q12 FOLATE PO QD LYRICA PO TID MED SURG STATUS DCP;FROM HOME
--- NOTE | 2020-01-02 16:58 | Diagnostic Imaging Report ---
Indication: Right foot pain Technique: Sagittal, axial, coronal T1 fast spin echo and STIR images. Pre and postcontrast coronal and axial T1 fat-saturated images of the left foot Comparison: Reference made to plain radiographs of 12/30/2019 Findings: A marker orr the area of presumed clinical abnormality in the medial plantar surface of the midfoot. Patient is status post amputation of the first digit at the level of the metatarsal head. Patient is status post amputation of the second digit at the level of the second metatarsal head. A small amount of fluid is seen in the ankle joint. No marrow signal abnormality to suggest acute osteomyelitis is evident. There is considerable dorsal soft tissue edema and less extensive plantar soft tissue edema. No focal collections or areas of nonenhancement to suggest abscess demonstrated Impression: Soft tissue edema. This could represent cellulitis or edema of hemodynamic nature No marrow signal abnormality to suggest osteomyelitis. No focal collection to suggest abscess Postsurgical changes as described
--- NOTE | 2020-01-02 17:00 | NUR ---
NURSE NOTES: called and faxed pt's RX to [facility]. They stated that they will deliver at pt room [facility]. I will f/u as needed
--- NOTE | 2020-01-02 17:23 | Internal Med Progress Note ---
Subjective Date of Service: Jan 02, 2020 Physician Name Shorty Antonio Attending Physician Kodi Pineda M.D. Current Medications Medications (Trade) Dose Ordered Sig/Dav Route PRN Reason Start Time Stop Time Status Last Admin Dose Admin Acetaminophen (Tylenol) 650 mg Q6H PRN ORAL Mild Pain (Pain Scale 1-3) 12/30/19 22:45 01/29/20 22:44 01/01/20 21:14 Atorvastatin Calcium (Lipitor) 10 mg BEDTIME ORAL 12/31/19 21:00 03/30/20 20:59 01/01/20 21:13 Chlorhexidine Gluconate (January-Hex 2%) 1 applic DAILY@1999 TOPIC 01/02/20 20:00 04/01/20 19:59 Dextrose (Dextrose 50%) 25 ml Q30M PRN IV Hypoglycemia 12/30/19 22:45 03/29/20 22:44 Dextrose (Dextrose 50%) 50 ml Q30M PRN IV Hypoglycemia 12/30/19 22:45 03/29/20 22:44 12/31/19 12:58 Ergocalciferol (Drisdol) 50,000 intlu ONCE A WEEK ORAL 12/31/19 09:00 01/30/20 08:59 12/31/19 09:19 Folic Acid (Folate) 1 mg DAILY ORAL 12/31/19 09:00 01/30/20 08:59 01/02/20 11:27 Gadobutrol (Gadavist) 7.5 mmol NOW PRN IV Radiology Procedure 01/02/20 13:45 01/06/20 13:44 Heparin Sodium (Porcine) (Heparin 5000 units/ml) 5,000 units EVERY 12 HOURS SUBQ 12/31/19 09:00 02/14/20 08:59 01/02/20 11:30 Heparin Sodium/ Sodium Chloride (Heparin 1000 units/500ml Premix) 1,000 unit ONCE PRN IV PICC PLACEMENT 01/02/20 12:00 01/03/20 23:59 Insulin Aspart (NovoLOG) BEFORE MEALS AND HS SUBQ 12/31/19 06:30 03/30/20 06:29 Lidocaine HCl (Xylocaine 1% 30ml) 30 ml ONCE PRN INJ PICC PLACEMENT 01/02/20 12:00 01/03/20 23:59 Paroxetine HCl (Paxil) 10 mg DAILY ORAL 12/31/19 09:00 01/30/20 08:59 01/02/20 11:27 Piperacillin Sod/ Tazobactam Sod 3.375 gm/Sodium Chloride 110 ml @ 27.5 mls/hr Q8H IVPB 12/31/19 10:00 01/07/20 09:59 01/02/20 11:29 Pregabalin (Lyrica) 100 mg THREE TIMES A DAY ORAL 12/31/19 09:00 01/30/20 08:59 01/02/20 14:55 Vancomycin HCl (Vanco pharmacy to dose) 1 ea DAILY PRN MISC Per rx protocol 12/30/19 22:00 01/29/20 21:59 Vancomycin HCl 1 gm/Dextrose 275 ml @ 183.708 mls/hr Q24H IVPB 12/31/19 22:00 01/05/20 21:59 01/01/20 21:15 Allergies: Coded Allergies: No Known Allergies (Unverified , 01/19/12) Constitutional: Reports: no symptoms HEENT: Reports: no symptoms Cardiovascular: Reports: no symptoms Respiratory: Reports: no symptoms Gastrointestinal/Abdominal: Reports: no symptoms Genitourinary: Reports: no symptoms Neurologic/Psychiatric: Reports: no symptoms All Systems: reviewed and negative except above Subjective MRI foot no evidence of osteomyleitis pain and swelling improving, eager to go home, VSS afebrilw +BM Objective Last Vital Signs Date Time Temp Pulse Resp B/P (MAP) Pulse Ox O2 Delivery O2 Flow Rate FiO2 01/02/20 12:00 98.2 77 19 137/64 (88) 98 01/02/20 09:00 Room Air General Appearance: alert Neck: supple Cardiovascular: normal rate, regular rhythm, no JVD Respiratory/Chest: lungs clear Abdomen: normal bowel sounds, non tender, soft Edema: mild edema Neurologic: alert, responsive, normal mood/affect Skin: warm/dry Laboratory Tests Test 01/01/20 20:17 01/02/20 08:20 01/02/20 12:19 POC Whole Blood Glucose 140 MG/DL (74-106) H 76 MG/DL (74-106) White Blood Count 5.6 K/UL (4.8-10.8) Red Blood Count 4.04 M/UL (4.20-5.40) L Hemoglobin 11.6 G/DL (12.0-16.0) L Hematocrit 36.3 % (37.0-47.0) L Mean Corpuscular Volume 90 FL (80-99) Mean Corpuscular Hemoglobin 28.6 PG (27.0-31.0) Mean Corpuscular Hemoglobin Concent 31.9 G/DL (32.0-36.0) L Red Cell Distribution Width 15.9 % (11.6-14.8) H Platelet Count 152 K/UL (150-450) Mean Platelet Volume 8.1 FL (6.5-10.1) Neutrophils (%) (Auto) 38.9 % (45.0-75.0) L Lymphocytes (%) (Auto) 40.3 % (20.0-45.0) Monocytes (%) (Auto) 13.1 % (1.0-10.0) H Eosinophils (%) (Auto) 6.5 % (0.0-3.0) H Basophils (%) (Auto) 1.3 % (0.0-2.0) Erythrocyte Sedimentation Rate 36 MM/HR (0-30) H Sodium Level 140 MMOL/L (136-145) Potassium Level 3.9 MMOL/L (3.5-5.1) Chloride Level 106 MMOL/L (98-107) Carbon Dioxide Level 27 MMOL/L (21-32) Anion Gap 7 mmol/L (5-15) Blood Urea Nitrogen 16 mg/dL (7-18) Creatinine 1.0 MG/DL (0.55-1.30) Estimat Glomerular Filtration Rate 53.8 mL/min (>60) Glucose Level 99 MG/DL (74-106) Calcium Level 9.5 MG/DL (8.5-10.1) Total Bilirubin 0.4 MG/DL (0.2-1.0) Aspartate Amino Transf (AST/SGOT) 26 U/L (15-37) Alanine Aminotransferase (ALT/SGPT) 18 U/L (12-78) Alkaline Phosphatase 36 U/L (46-116) L C-Reactive Protein, Quantitative 0.6 mg/dL (0.00-0.90) Total Protein 6.7 G/DL (6.4-8.2) Albumin 3.3 G/DL (3.4-5.0) L Globulin 3.4 g/dL Albumin/Globulin Ratio 1.0 (1.0-2.7) Microbiology Date/Time Source Procedure Growth Status 12/31/19 06:00 Foot Left Gram Stain - Final Resulted 12/31/19 06:00 Foot Left Wound Culture - Preliminary NO GROWTH AFTER 48 HOURS Resulted Intake and Output 01/01/20 01/02/20 19:00 07:00 Intake Total 1037.5 ml 627.5 ml Balance 1037.5 ml 627.5 ml Intake Oral 600 ml IV Total 137.5 ml 27.5 ml Other 900 ml # Voids 3 Assessment/Plan Status: stable, progressing, tolerating diet Assessment/Plan #Diabetic foot infection #DM #HTN #HLD #Depression PLAN: PT eval - IV vanco and zosyn MRI L foot reviewed no osteo or abscess - wound care - ID eval - surgery f/u - hold metformin - rstatin - ISS - paxil -glycemic control fall precaution electrolyte replete as needed Shorty Antonio MD Internal Medicine [phone] over 35 minutes spent today time of stamp may NOT be the actual pt encounter/visit Shorty Antonio MD Jan 02, 2020 17:23
--- NOTE | 2020-01-02 18:00 | NUR ---
NURSE NOTES: Received order to d/c home. patient son Marcial was notified. I will f/u as needed.
--- NOTE | 2020-01-02 18:06 | NUR ---
Pt's BS was 67. Cranberry juice given. after 15 minutes, BS elevated to 159. Dr. Pineda made aware.
--- NOTE | 2020-01-02 18:54 | NUR ---
NURSE NOTES: Discharge instructions and belongings list given to the patient. IV removed prior to d.c. also given po antibiotics. patient left the floor with no signs of distress or other issues at this time. patient son will provide transportation.
[2020-01-02] MEDS ORDERED: Dyna-Hex 2% Top Sol 2oz TOPIC SCH (20:00)
--- NOTE | 2020-01-03 02:00 | Consultation ---
DATE OF CONSULTATION: 01/02/2020 CONSULTING PHYSICIAN: Lazaro Franklin DPM REFERRING PHYSICIAN: Kodi Pineda MD. REASON FOR CONSULTATION: Diabetic foot infection, left foot. HISTORY OF PRESENT ILLNESS: This is a 79-year-old diabetic patient, who was admitted to [facility] for evaluation and treatment of left foot, status post amputation. The patient states that she had amputation of the left first and second toe by Dr. De La Cruz at [facility]. She states that she noticed it was getting very painful and swollen, and was afraid for possible infection and is admitted for evaluation and treatment. Denies fever, chills, nausea, and vomiting. White count is noted to be within normal limits. PAST MEDICAL HISTORY: Diabetes, osteomyelitis, diabetic foot infection, and diabetic foot ulcer. PODIATRY EXAMINATION: VASCULAR: Dorsalis pedis is palpable, 1/4 in the right foot and nonpalpable on the left. Posterior tibial artery is nonpalpable. Capillary filling time is delayed on the left compared to the right. NEUROLOGICAL: Sharp and dull, proprioception, protective threshold noted to be diminished consistent with peripheral neuropathy. MUSCULOSKELETAL: The left hallux and second toe amputations identified. There is dehiscence, status post amputation. There are toe contractions 2 through 5 on the left and 2 through 5 on the right, consistent with hammertoe deformity at the PIP joint. DERMATOLOGICAL: Attention was directed to the left foot, status post amputation stump site with dehiscence of the amputations at that site. There is slight drainage at this site. No purulent discharge is seen. There is an opening across the skin changes seen at the site, status post the amputation. Evaluation of the foot noted a decrease in temperature distal to the midfoot of the left foot compared to the right, consistent with peripheral arterial disease. ASSESSMENT AND PLAN: Diabetic patient with left foot ulceration, status post amputation with clinical presentation of peripheral arterial disease at this site, possibly from nonhealing surgical site. Imaging study negative for osteomyelitis of the bone. The patient will benefit from a vascular evaluation. Order was given for local wound care. The patient will be followed as necessary and the patient signed off. Lazaro Moore D.P.M DR: Pablo JOB#: [id number] CC:
--- NOTE | 2020-01-03 14:37 | Discharge Summary ---
Discharge Summary Discharge Summary _ DATE OF ADMISSION: 12/30/2019 DATE OF DISCHARGE: 01/02/2020 DISCHARGED BY: Dr. Pineda REASON FOR ADMISSION: 79 years old female with past medical history of diabetes, status post amputation of left toe 6 months ago, brought by her son due to worsening pain at the surgical site. Patient apparently was told by her primary physician that she would get IV cefazolin , but did not start it yet. Patient was currently taking Keflex p.o. She denied any injury and was neurovascularly intact; minimal pus at the surgical site . patient remained afebrile. She denied chest pain, shortness of breath, headache and dizziness. Upon evaluation vital signs are stable. Laboratory work-up revealed no leukocytosis, hemoglobin 11.4 ,hematocrit 34.7. ESR 40. CRP less than 0.4. Stable electrolytes. BUN 34, creatinine 1.3. Lactic acid 1.7. Troponin negative , proBNP 126 . Urinalysis revealed +2 leukocyte esterase, but no pyuria, no bacteria. X-ray of the left foot revealed distal first metatarsal amputation at the level of the head second digit amputation. No acute abnormality to account for patient presentation. Chest x-ray revealed no acute cardiopulmonary pathology. In emergency department patient received cefazolin and admitted for further management. CONSULTANTS: station cashier Dr. Hatch ID specialist Dr. Abel general medicine Dr. Antonio child psychometrist surgery Dr. Sutton [facility] COURSE: Patient admitted to medical surgical floor. Patient started on IV antibiotics Vanco and Zosyn . Blood sugar was managed with sliding scale of insulin. Blood cultures were negative . Wound culture was negative. MRI of the left foot revealed no marrow signal abnormality to suggest osteomyelitis ; no focal collection to suggest abscess. Wound care provided as per child psychometrist recommendation. Continue local wound care at home. Warehouse Order Filler recommended that the patient will benefit from vascular evaluation. Renal parameters and electrolytes were closely monitored, electrolytes corrected as needed . Fall precaution maintained. Statin continued. Home medication continued. DVT prophylaxis provided. Blood pressure remained stable with the current regimen. Patient was discharged on Augmentin and doxycycline for 1 week ,prescription provided . FINAL DIAGNOSES: Diabetic foot infection Infection of the amputation site of lower extremity Status post amputation Peripheral arterial disease Diabetes mellitus Hypertension Hyperlipidemia Depression DISCHARGE MEDICATIONS: See Medication Reconciliation list. DISCHARGE INSTRUCTIONS: Patient was discharged home with home health services. Follow up with primary care provider in one week. I have been assigned to dictate discharge summary for this account. I was not involved in the patient's management. Inga Randall NP Jan 03, 2020 14:37
== END 2020-01-02 18:50 | disposition home or self-care (01) | DRG 565 ==
LOC: EMR 16:45 → 4E 17:47 → EDBEDREQ 19:16
DX: T87.44 Infection of amputation stump, left lower extremity (principal); L03.116 Cellulitis of left lower limb; T87.81 Dehiscence of amputation stump; Y83.8 Other surgical procedures as the cause of abnormal reaction of the patient, or of later complication, without mention of misadventure at the time of the procedure; E11.621 Type 2 diabetes mellitus with foot ulcer; I10 Essential (primary) hypertension; L97.529 Non-pressure chronic ulcer of other part of left foot with unspecified severity; M77.32 Calcaneal spur, left foot; F32.9 Major depressive disorder, single episode, unspecified; Z79.84 Long term (current) use of oral hypoglycemic drugs; E78.5 Hyperlipidemia, unspecified; Z89.422 Acquired absence of other left toe(s); I73.9 Peripheral vascular disease, unspecified; Z85.038 Personal history of other malignant neoplasm of large intestine
CPT/HCPCS: 36415; 71045; 80048; 80053; 81003; 82550; 82962; 83036; 83605; 83735; 83880; 84100; 84484; 85025; 85610; 85651; 85730; 86140; 87040; 87070; 87205; 93005; 96365; 96366; 99285; A9585; J1815

== ENCOUNTER 2020-02-27 13:46 | Outpatient (RCR) | payer MEDICARE, MEDICAID ==
[~2020-02-27] VITALS: Ht 160 cm; Wt 56.7 kg
[2020-03-02] MEDS ORDERED: Lidocaine 4% Top Soln 50ml TOPIC ONE (14:30)
== END 2020-03-11 | disposition home or self-care (01) ==
LOC: WCC 13:46
DX: L97.522 Non-pressure chronic ulcer of other part of left foot with fat layer exposed (principal); T81.31XA Disruption of external operation (surgical) wound, not elsewhere classified, initial encounter; E11.621 Type 2 diabetes mellitus with foot ulcer; X58.XXXA Exposure to other specified factors, initial encounter; Y92.9 Unspecified place or not applicable; E78.00 Pure hypercholesterolemia, unspecified; E11.9 Type 2 diabetes mellitus without complications; I11.9 Hypertensive heart disease without heart failure; I51.9 Heart disease, unspecified
CPT/HCPCS: G0463